=== PATIENT | female | born 1950 | race Caucasian/White ===

== ENCOUNTER → 2016-06-05 | Outpatient (CLI) | payer OTHER ==
[2016-06-05 13:22] LABS: BASO % 0.4 %; BASO ABS # 0.04 K/uL (0-0.2); COMPLETE YES; EOS % 0.5 %; HEMATOCRIT 43.9 % (37-47); IG% 0.4 %; LYMPH % 20.2 %; LYMPH ABS # 1.87 K/uL (1.2-3.4); MEAN CELL VOLUME 94.4 fL (80-100); MEAN CORPUSCULAR HEMOGLOBIN 32.5 pg (25-34); MEAN CORPUSCULAR HGB CONC 34.4 g/dl (32-36); MEAN PLATELET VOLUME 9.3 fL (7.4-10.4); MONO % 8.9 %; NEUT % 69.6 %; PLATELET COUNT 293 K/uL (130-400); RED BLOOD COUNT 4.65 M/uL (4.2-5.4); WHITE BLOOD COUNT 9.24 K/uL (4.8-10.8)
[2016-06-05 13:33] LABS: ALT/SGPT 42 U/L (12-78); BLOOD UREA NITROGEN 12 mg/dl (7-18); BUN/CREATININE RATIO 14.8 (10-20); CARBON DIOXIDE 26 mmol/L (21-32); CHLORIDE 101 mmol/L (98-107); CHOLESTEROL 201 mg/dl (0-200); CREATININE 0.79 mg/dl (0.60-1.20); GLUCOSE 108 mg/dl (70-99); POTASSIUM 3.9 mmol/L (3.5-5.1); SODIUM 137 mmol/L (136-145); TRIGLYCERIDES 103 mg/dl (0-150); VERY LOW DENSITY LIPOPROT CALC 21 mg/dl
[2016-06-05 13:41] LABS: ESTIMATED AVERAGE GLUCOSE 123 mg/dl; HA1C FLAG Normal (Normal)
[2016-06-05 13:43] LABS: ALKALINE PHOSPHATASE 87 U/L (45-117); AST/SGOT 35 U/L (15-37); CHOLESTEROL/HDL RATIO 2.5; HDL CHOLESTEROL 82 mg/dl; LDL CHOLESTEROL CALCULATED 98 mg/dl; THYROID STIMULATING HORMONE 0.815 uIu/ml (0.300-4.500)
== END | disposition home or self-care (01) ==
LOC: C.LABMFLN 08:39
PROVIDERS: ATTEND Family Medicine
DX: I10 Essential (primary) hypertension (principal); E78.5 Hyperlipidemia, unspecified; Z11.59 Encounter for screening for other viral diseases; R73.01 Impaired fasting glucose

== ENCOUNTER → 2016-09-03 | Outpatient (CLI) | payer OTHER | END | disposition home or self-care (01) | LOC: C.PAPS 14:17 | PROVIDERS: ATTEND Family Medicine | DX: Z12.4 Encounter for screening for malignant neoplasm of cervix (principal) ==

== ENCOUNTER → 2016-12-04 | Outpatient (CLI) | payer OTHER ==
[2016-12-04 13:33] LABS: BASO % 0.4 %; BASO ABS # 0.03 K/uL (0-0.2); COMPLETE YES; EOS % 0.2 %; HEMATOCRIT 43.9 % (37-47); IG% 0.4 %; LYMPH % 20.8 %; LYMPH ABS # 1.75 K/uL (1.2-3.4); MEAN CORPUSCULAR HEMOGLOBIN 31.4 pg (25-34); MEAN CORPUSCULAR HGB CONC 34.2 g/dl (32-36); MONO % 10.7 %; NEUT % 67.5 %; PLATELET COUNT 309 K/uL (130-400); RED BLOOD COUNT 4.77 M/uL (4.2-5.4)
[2016-12-04 14:21] LABS: BLOOD UREA NITROGEN 8 mg/dl (7-18); BUN/CREATININE RATIO 11.2 (10-20); CALCIUM 9.5 mg/dl (8.5-10.1); CARBON DIOXIDE 23 mmol/L (21-32); CHLORIDE 105 mmol/L (98-107); CREATININE 0.74 mg/dl (0.60-1.20); GLUCOSE 115 mg/dl (70-99); MAGNESIUM 2.4 mg/dl (1.8-2.4); POTASSIUM 4.1 mmol/L (3.5-5.1); SODIUM 135 mmol/L (136-145)
[2016-12-04 14:31] LABS: PHOSPHORUS 2.7 mg/dl (2.5-4.9); THYROID STIMULATING HORMONE 0.824 uIu/ml (0.300-4.500)
== END | disposition home or self-care (01) ==
LOC: C.LABMFLN 10:29
PROVIDERS: ATTEND Family Medicine
DX: I48.91 Unspecified atrial fibrillation (principal)

== ENCOUNTER 2023-09-14 15:51 | Inpatient (IN) ==
--- NOTE | 2023-09-14 16:07 | ED Triage Note ---
Date of Service September 14, 2023 Provider in Triage Author: Amor Abernathy A History of Present Illness This patient was briefly evaluated while in triage. An abbreviated physical exam was performed. This patient is a 73-year-old Female who presents to the ED for evaluation of low blood pressure. Had neuro appt today and BP was "60/54" in the office. Hx lung CA with mets. Finished chemo/rad. On immunotherapy. Increased weakness. Sore throat. Back pain. Physical Exam Limited Triage Exam: VITALS: Vitals are noted on the nurse's note and reviewed by myself. Vital signs stable. GENERAL: Elderly white female in NAD HEART: Regular rate and rhythm without murmurs gallops or rubs. LUNGS: Clear to auscultation bilaterally without wheezes, rales or rhonchi. . NEURO: Patient was alert and oriented to person place and time. CN II through XII grossly intact. Initial orders for labs and / or imaging were placed and patient was placed in the waiting area until a bed is available. Please see further documentation for the full ED course. MDM / Impression Impression Impression: Pneumonia, Atrial fibrillation with rapid ventricular response, Hypotension, Metastatic disease, Hypokalemia Impression: Pneumonia Qualifiers: Pneumonia type: aspiration pneumonia Aspiration pneumonia type: unspecified Laterality: bilateral Lung location: lower lobe of lung Qualified Code(s): J69.0 - Pneumonitis due to inhalation of food and vomit Hypotension Qualifiers: Hypotension type: unspecified hypotension type Qualified Code(s): I95.9 - Hypotension, unspecified Metastatic disease Qualifiers: Area of secondary neoplastic involvement: unspecified site Qualified Code(s): C79.9 - Secondary malignant neoplasm of unspecified site
[2023-09-14 16:41] LABS: Hematocrit (blood only) 37.2 % (37.0-47.0); Hemoglobin 12.3 g/dl (12.0-16.0); Mean Corpuscular Hemoglobin 30.9 pg (25.0-34.0); Mean Corpuscular Hgb Conc 33.1 g/dL (32.0-36.0); Mean Corpuscular Volume 93.5 fL (80.0-100.0); Mean Platelet Volume 10.6 fL (9.4-12.4); Nucleated RBC # (auto) 0.03 K/uL (0.00-0.12); Nucleated RBC % (auto) 0.4 %; Platelet Count 197 K/uL (130-400); RDW Coefficient of Variation 17.4 % (11.5-14.5); RDW Standard Deviation 57.2 fL (36.4-46.3); Red Blood Count 3.98 M/uL (4.20-5.40); White Blood Count 7.88 K/ul (4.8-10.8)
[2023-09-14] MEDS: SODIUM CHLORIDE 0.9% 500 ML IV ONE ×3 (16:41→19:02)
--- NOTE | 2023-09-14 16:42 | XRay Report ---
XR chest 1V portable CLINICAL HISTORY: hypotension, lung CA history COMPARISON STUDY: Chest radiograph May 19, 2023. PET/CT June 11, 2023. Treatment planning CT July 13, 2023. FINDINGS: Left upper lobe fiducial marker is in place. Left upper lobe airspace opacity on CT of Febr ua 2023 has improved. Mild right lower lung opacities. No evidence for pulmonary edema. There i s no pneumothorax or pleural effusion. Cardiomediastinal silhouette is stable. IMPRESSION: 1. Patchy right lower lung opacities which may be infectious. 2. Interval improvement in left upper lobe airspace opacity. ACT 112: Negative or not required by law. Electronically signed by: Ben Stringer M.D. 09/14/2023 4:41 PM
--- NOTE | 2023-09-14 16:52 | Electrocardiogram Report ---
Test Reason : Blood Pressure : / mmHG Vent. Rate : 127 BPM Atrial Rate : 000 BPM P-R Int : 000 ms QRS Dur : 094 ms QT Int : 294 ms P-R-T Axes : 000 094 233 degrees QTc Int : 427 ms Atrial fibrillation with rapid ventricular response Rightward axis Marked ST abnormality, possible inferior subendocardial injury Marked ST abnormality, possible anterolateral subendocardial injury Abnormal ECG No previous ECGs available Confirmed by Adilson Madrid ([id number]) on 09/14/2023 4:52:25 PM Referred By: Confirmed By:Hammad Madrid
[2023-09-14 16:57] LABS: Alanine Aminotransferase 16 U/L (7-52); Albumin Globulin Ratio 1.1 (0.9-2); Albumin Level 3.6 gm/dl (3.4-5.0); Alkaline Phosphatase 101 U/L (34-104); Anion Gap 13 (3-11); Aspartate Aminotransferase 19 U/L (13-39); BUN Creatinine Ratio 42.9 (10-20); Bilirubin,Total 0.5 mg/dl (0.2-1.0); Blood Urea Nitrogen 76 mg/dl (6-23); Calcium 9.3 mg/dl (8.6-10.3); Carbon Dioxide 28 mmol/L (21-32); Chloride 100 mmol/L (98-107); Est GFR (Non-African American) 27.6 ml/min; Globulin 3.4 gm/dl (2.5-4.0); Glucose 158 mg/dl (70-99(Fasting)); Magnesium 1.9 mg/dl (1.7-2.4); Potassium 2.9 mmol/L (3.5-5.1); Sodium 141 mmol/L (136-145)
--- NOTE | 2023-09-14 17:03 | Emergency Department Note ---
Impression & Plan Pneumonia, Atrial fibrillation with rapid ventricular response, Hypotension, Metastatic disease, Hypokalemia ED Provider Note NAME: JAM AHN AGE: 73 SEX: F : 1950 ARRIVES VIA: Walk-In INFORMANT: Patient ED PROVIDER(S): Vignesh Hastings MD CHIEF COMPLAINT: Weakness, hypotension, afib. PLAN: Disposition: Admit MEDICAL DECISION MAKING: The patient is a pleasant 73-year-old woman with a complicated past medical history of metastatic lung cancer with brain metastases, paroxysmal atrial fibrillation on Eliquis, hypertension, hyperlipidemia who presents to the emergency department via walk-in accompanied by family with concern for generalized weakness and fatigue with low blood pressure after being seen for scheduled visit with neurology to follow-up outpatient MRI which demonstrates brain metastases. The patient has had poor oral intake due to feeling unwell after completing radiation and chemotherapy recently. On my evaluation the patient is ill-appearing no distress, afebrile with blood pressure hypotensive in the 70s/50s with heart rate in the 130s in atrial fibrillation. Patient was fluid responsive with blood pressure improving to 100s and additionally stable following 5 mg of IV Lopressor for rate control and improved ventricular filling. Lungs with diminished breath sounds at the bases with mild rhonchi and otherwise clear. EKG demonstrates atrial fibrillation with RVR with rate of 127. Marked ST abnormalities noted likely related to the patient's hypokalemia of 2.9. No overt ST elevations. WBC, H/H and platelets within normal limits. Creatinine is acutely impaired with creatinine 1.7 consistent with acute renal failure. Potassium 2.9 with IV repletion initiated. Magnesium was low normal and IV repletion was provided. Initial high-sensitivity troponin was 50, nonspecific with delta 2-hour Hites troponin 38.8 downtrending and so likely related to stress related to the patient's RVR and hypotension. LFTs unremarkable. Lipase not elevated. TSH within normal limits. Respiratory viral panel/[employer] was negative. Chest x-ray demonstrates patchy right lower lung opacities suspicious for infection which are better characterized on CT imaging. CTA of the chest was negative for PE. And describes multifocal patchy airspace consolidation typical for pneumonia/aspiration. Incidental note is made of acute inferior endplate compression fracture of L1 with no retropulsion and minimal loss of height. Left upper lobe pulmonary lesion is described and has improved. Progressive metastatic disease in the abdomen pelvis is noted including left lobe hepatic metastases, adrenal metastases and metastatic bony disease within the lumbosacral spine are new from June of this year. Blood cultures were obtained and patient was treated empirically with IV cefepime and metronidazole. MRSA swab was ordered and is pending. Findings reviewed with the patient and family at the bedside and they do agree with plan for admission for further management. Case was discussed with Dr. Hughes [facility] [place] hospitalist, who will evaluate the patient for admission. Triage Nursing notes reviewed and agree them. Prior/external medical records reviewed Vital Signs: reviewed Differential diagnosis: Infection, dehydration, metabolic abnormality, hypo/hyperglycemia, electrolyte disturbance, anemia, hypoxia, cardiac sources, intracerebral event, toxicologic, neurologic, as well as other pathologies. ER treatment provided: See below. Diagnostics interpreted by me: ECG: Atrial fibrillation with RVR, 127bpm, Marked ST abnormalities, no overt ST elevation. Cardiac Monitoring: An order for continuous cardiac monitoring was placed and demonstrated Atrial fibrillation with RVR, 127bpm. Laboratory studies: See below Imaging studies: See below Consultation(s): Case was discussed with Dr. Hughes, [facility] [place] hospitalist, who will evaluate the patient for admission. HPI: The patient is a pleasant 73-year-old woman with a complicated past medical history of metastatic lung cancer with brain metastases, paroxysmal atrial fibrillation on Eliquis, hypertension, hyperlipidemia who presents to the emergency department via walk-in accompanied by family with concern for generalized weakness and fatigue with low blood pressure after being seen for scheduled visit with neurology to follow-up outpatient MRI which demonstrates brain metastases. The patient has had poor oral intake due to feeling unwell after completing radiation and chemotherapy recently. ROS: See above HPI for pertinent positives & negatives. A total of 10 systems reviewed and were otherwise negative. VITALS:See Below PHYSICAL EXAMINATION: GENERAL: Awake, alert, ill-appearing, in no distress HENT: Normocephalic, atraumatic. Oropharynx with dry mucous membranes and otherwise unremarkable. EYES: Normal conjunctiva. Sclera non-icteric. NECK: Supple. No nuchal rigidity. FROM. No JVD. RESPIRATORY: Lungs with diminished breath sounds at the bases with mild rhonchi and otherwise clear. CARDIAC: Tachycardic rate, irregular rhythm. Extremities warm and well perfused. Pulses equal. ABDOMEN: Soft, non-distended. No tenderness to palpation. No rebound or guarding. No masses. MUSCULOSKELETAL: Chest examination reveals no tenderness. The back is symmetrical on inspection without obvious abnormality. There is no CVA tenderness to palpation. No joint edema. LOWER EXTREMITIES: Calves are equal size bilaterally and non-tender. No edema. No discoloration. NEURO: Normal sensorium. No sensory or motor deficits noted. SKIN: No rash or jaundice noted. ED COURSE: Critical Care: I have personally spent greater than 45 minutes of critical care time in the direct management of this patient. This includes bedside care, interpretation of diagnostic studies, and testing, discussion with consultants, patient, and family members, and other required patient management activities. This 45 minutes is in excess of all separately billable procedures. Vignesh Hastings MD Past Med/Surg History Medical History Hx of traumatic subdural hematoma ~68 yrs old History of colon polyps Pulmonary nodule Dyspnea on exertion Diabetes Tobacco use Paroxysmal atrial fibrillation follows w/ Dr Segura every 6 mos; controlled w/ meds Hypertension Hyperlipidemia Generalized anxiety disorder Depression COPD (chronic obstructive pulmonary disease) with emphysema Allergic rhinitis Surgical History S/P tonsillectomy and adenoidectomy S/P decompression of ulnar nerve H/O dilation and curettage S/P colonoscopy Family History Sister Breast cancer, Onset Age: 50 Daughter Colorectal cancer Mother Coronary heart disease Diabetes Father Coronary heart disease Lung cancer Myocardial infarction Grandfather (Maternal) Lung cancer Sister Hypothyroid Diabetes Brother Myocardial infarction, Onset Age: 57 Sister Suicide, Onset Age: 40 Manic depression Daughter Colon cancer, Onset Age: 41 Denies family history of Ovarian cancer Prostate cancer Social History Smoking Status: Never smoker Tobacco Type: Cigarettes Age Started Using Tobacco: 13; packs per day: 0.75; Cigarettes Per Day: 30 per day- advised; Second Hand Exposure: Yes (Father smoked); Do You Dip or Chew Tobacco: No; Hx Alcohol Use: No Hx Substance Use: No Preferred Language: Rw[place]an Communication Ability: Effective Visual Impairment: No Limitations Hearing Ability: Normal 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: No Beliefs That Will Affect Care: None marital status: / Current Living Situation: Family Current Living Situation Comment: Lives with sister and sister in law 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; How many Children do You have: 1 How many Children do You have Comment: 1 living and 1 Feels Safe at Home: Yes Childhood Exposure to Second-Hand Smoke: Yes (Father smoked) Diet: regular caffeine: Yes during the past year weight has: increased > 10 lbs Dental Care, Regularly: No 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: 3-4 Times per Week 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 Comment: 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[employer], 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 Seatbelt Use: always Sunscreen Use: Yes Gender Identity: Female Assistive Devices: Denture - Upper, Glasses, Nebulizer and Stair Lift Allergies Allergies Allergy/AdvReac Type Severity Reaction Status Date / Time atorvastatin [From Lipitor] AdvReac Intermediate Legs go to Verified 09/14/23 14:44 sleep Home Meds Home Medications Medication Instructions Recorded Confirmed acetaminophen 325 mg capsule 650 mg PO Q6H PRN Pain 04/09/21 09/14/23 (Tylenol) apixaban 5 mg tablet (Eliquis) 5 mg PO BID 05/19/23 09/14/23 prochlorperazine maleate 10 mg 10 mg PO Q6H PRN n/v 08/04/23 09/14/23 tablet (Compazine) dexamethasone 4 mg tablet 20 mg PO DAILY 08/07/23 09/14/23 Previous Rx's Medication Instructions Recorded venlafaxine 150 mg 150 mg PO DAILY #90 caps 11/21/22 capsule,extended release 24 hr losartan 100 mg tablet 100 mg PO DAILY #90 tabs 12/30/22 rosuvastatin 20 mg tablet 20 mg PO DAILY #90 tabs 01/09/23 venlafaxine 75 mg capsule,extended 75 mg PO DAILY #90 caps 01/09/23 release 24 hr metformin 500 mg tablet,extended 500 mg PO BID #180 tabs 01/12/23 release 24hr (osmotic) nebulizers #1 ea 07/13/23 metoprolol succinate 200 mg 200 mg PO DAILY #90 tabs 07/28/23 tablet,extended release 24 hr albuterol sulfate 90 mcg/actuation 2 puff inhalation QID PRN 08/06/23 aerosol inhaler (ProAir HFA) shortness of breath or wheezing #18 grams hydrochlorothiazide 12.5 mg tablet 12.5 mg PO DAILY #90 tabs 08/06/23 fluticasone fur. 200 mcg-umeclid 1 inh inhalation DAILY #60 ea 08/07/23 62.5 mcg-vilant 25 mcg inhalat.powder (Trelegy Ellipta) clonazepam 1 mg tablet 1 mg PO BID PRN anxiety #90 tabs 08/10/23 ipratropium 0.5 mg-albuterol 3 mg 3 ml inhalation QID #180 mL 08/10/23 (2.5 mg base)/3 mL nebulization soln Magic Mouthwash 300 mL mouthwash 10 ml mucous membrane ACHS 08/17/23 Dysphagia #300 mL sucralfate 1 gram tablet (Carafate) 1 g PO ACHS #90 tabs 08/24/23 varenicline 1 mg tablet (Chantix 1 mg PO BID #60 tabs 08/24/23 Continuing Month Box) tramadol 50 mg tablet 50 mg PO Q8H PRN pain #60 tabs 09/01/23 Results & Data (ED) Vital Signs Vital Signs - 24 hr 09/14/23 16:05 09/14/23 16:22 09/14/23 16:23 Temperature 36.9 C Temperature Source Temporal Artery Scan Pulse Rate 69 133 H Pulse Rate [Apical] Pulse Rate from SpO2 Sensor 87 Pulse Rhythm [Apical] Pulse Strength [Apical] Respiratory Rate 18 27 H Respiratory Effort / Characteristics Non-Labored Spontaneous Respiratory Depth Normal Respiratory Pattern Blood Pressure 76/55 L Blood Pressure [Left Arm] Blood Pressure Mean 62 Blood Pressure Mean [Left Arm] Blood Pressure Position [Left Arm] Pulse Oximetry 94 92 92 Oxygen Delivery Method Room Air Room Air Oxygen Flow Rate Sepsis Recent Fever Within 48 Hours No Sepsis New/Unexplained Change in Mental Status N/A Sepsis Action Taken by Nursing No Action Required 09/14/23 16:23 09/14/23 16:30 09/14/23 16:31 Temperature 36.9 C Temperature Source Oral Pulse Rate 130 H Pulse Rate [Apical] 130 H Pulse Rate from SpO2 Sensor 115 H Pulse Rhythm [Apical] Regular Pulse Strength [Apical] Normal Respiratory Rate 20 26 H Respiratory Effort / Characteristics Non-Labored Spontaneous Respiratory Depth Normal Respiratory Pattern Regular Blood Pressure 108/57 L Blood Pressure [Left Arm] 96/54 L Blood Pressure Mean 60 Blood Pressure Mean [Left Arm] 68 Blood Pressure Position [Left Arm] Semi-fowlers Pulse Oximetry 92 93 Oxygen Delivery Method Room Air Oxygen Flow Rate Sepsis Recent Fever Within 48 Hours Sepsis New/Unexplained Change in Mental Status Sepsis Action Taken by Nursing 09/14/23 16:31 09/14/23 16:40 09/14/23 16:50 Temperature Temperature Source Pulse Rate 134 H 124 H 105 H Pulse Rate [Apical] Pulse Rate from SpO2 Sensor 118 H 122 H 111 H Pulse Rhythm [Apical] Pulse Strength [Apical] Respiratory Rate 26 H 23 22 Respiratory Effort / Characteristics Respiratory Depth Respiratory Pattern Blood Pressure Blood Pressure [Left Arm] Blood Pressure Mean Blood Pressure Mean [Left Arm] Blood Pressure Position [Left Arm] Pulse Oximetry 97 97 90 Oxygen Delivery Method Oxygen Flow Rate Sepsis Recent Fever Within 48 Hours Sepsis New/Unexplained Change in Mental Status Sepsis Action Taken by Nursing 09/14/23 16:54 09/14/23 17:00 09/14/23 17:00 Temperature Temperature Source Pulse Rate 131 H 112 H Pulse Rate [Apical] Pulse Rate from SpO2 Sensor 115 H Pulse Rhythm [Apical] Pulse Strength [Apical] Respiratory Rate 24 Respiratory Effort / Characteristics Respiratory Depth Respiratory Pattern Blood Pressure 97/62 L Blood Pressure [Left Arm] Blood Pressure Mean 71 Blood Pressure Mean [Left Arm] Blood Pressure Position [Left Arm] Pulse Oximetry 93 Oxygen Delivery Method Oxygen Flow Rate Sepsis Recent Fever Within 48 Hours Sepsis New/Unexplained Change in Mental Status Sepsis Action Taken by Nursing 09/14/23 17:10 09/14/23 17:20 09/14/23 17:22 Temperature Temperature Source Pulse Rate 111 H 111 H 111 H Pulse Rate [Apical] Pulse Rate from SpO2 Sensor 114 H 108 H Pulse Rhythm [Apical] Pulse Strength [Apical] Respiratory Rate 25 H 24 Respiratory Effort / Characteristics Respiratory Depth Respiratory Pattern Blood Pressure 97/62 L Blood Pressure [Left Arm] Blood Pressure Mean Blood Pressure Mean [Left Arm] Blood Pressure Position [Left Arm] Pulse Oximetry 91 87 L Oxygen Delivery Method Oxygen Flow Rate Sepsis Recent Fever Within 48 Hours Sepsis New/Unexplained Change in Mental Status Sepsis Action Taken by Nursing 09/14/23 17:30 09/14/23 17:30 09/14/23 17:37 Temperature Temperature Source Pulse Rate 103 H 102 H Pulse Rate [Apical] Pulse Rate from SpO2 Sensor 110 H Pulse Rhythm [Apical] Pulse Strength [Apical] Respiratory Rate 21 Respiratory Effort / Characteristics Respiratory Depth Respiratory Pattern Blood Pressure 101/57 L 101/57 L Blood Pressure [Left Arm] Blood Pressure Mean 73 Blood Pressure Mean [Left Arm] Blood Pressure Position [Left Arm] Pulse Oximetry 87 L Oxygen Delivery Method Oxygen Flow Rate Sepsis Recent Fever Within 48 Hours Sepsis New/Unexplained Change in Mental Status Sepsis Action Taken by Nursing 09/14/23 18:00 09/14/23 18:00 09/14/23 18:10 Temperature 36.9 C Temperature Source Oral Pulse Rate 108 H 97 H Pulse Rate [Apical] 103 H Pulse Rate from SpO2 Sensor 102 H 102 H Pulse Rhythm [Apical] Regular Pulse Strength [Apical] Normal Respiratory Rate 20 25 H 25 H Respiratory Effort / Characteristics Non-Labored Spontaneous Respiratory Depth Normal Respiratory Pattern Regular Blood Pressure Blood Pressure [Left Arm] 101/57 L Blood Pressure Mean Blood Pressure Mean [Left Arm] 71 Blood Pressure Position [Left Arm] Semi-fowlers Pulse Oximetry 92 92 91 Oxygen Delivery Method Room Air Oxygen Flow Rate Sepsis Recent Fever Within 48 Hours Sepsis New/Unexplained Change in Mental Status Sepsis Action Taken by Nursing 09/14/23 18:20 09/14/23 18:30 09/14/23 18:40 Temperature Temperature Source Pulse Rate 107 H 120 H 99 H Pulse Rate [Apical] Pulse Rate from SpO2 Sensor 112 H 114 H 105 H Pulse Rhythm [Apical] Pulse Strength [Apical] Respiratory Rate 25 H 22 21 Respiratory Effort / Characteristics Respiratory Depth Respiratory Pattern Blood Pressure Blood Pressure [Left Arm] Blood Pressure Mean Blood Pressure Mean [Left Arm] Blood Pressure Position [Left Arm] Pulse Oximetry 89 L 89 L 86 L Oxygen Delivery Method Oxygen Flow Rate Sepsis Recent Fever Within 48 Hours Sepsis New/Unexplained Change in Mental Status Sepsis Action Taken by Nursing 09/14/23 18:43 09/14/23 18:43 09/14/23 18:50 Temperature Temperature Source Pulse Rate 103 H 107 H Pulse Rate [Apical] Pulse Rate from SpO2 Sensor 106 H 105 H Pulse Rhythm [Apical] Pulse Strength [Apical] Respiratory Rate 23 25 H Respiratory Effort / Characteristics Respiratory Depth Respiratory Pattern Blood Pressure 94/67 L Blood Pressure [Left Arm] Blood Pressure Mean 79 Blood Pressure Mean [Left Arm] Blood Pressure Position [Left Arm] Pulse Oximetry 92 89 L Oxygen Delivery Method Room Air Oxygen Flow Rate Sepsis Recent Fever Within 48 Hours Sepsis New/Unexplained Change in Mental Status Sepsis Action Taken by Nursing 09/14/23 19:00 09/14/23 19:00 09/14/23 19:10 Temperature Temperature Source Pulse Rate 107 H 107 H 109 H Pulse Rate [Apical] Pulse Rate from SpO2 Sensor 103 H 112 H Pulse Rhythm [Apical] Pulse Strength [Apical] Respiratory Rate 26 H 26 H 26 H Respiratory Effort / Characteristics Respiratory Depth Respiratory Pattern Blood Pressure 121/82 Blood Pressure [Left Arm] Blood Pressure Mean 87 Blood Pressure Mean [Left Arm] Blood Pressure Position [Left Arm] Pulse Oximetry 94 94 99 Oxygen Delivery Method Nasal Cannula Oxygen Flow Rate 2 Sepsis Recent Fever Within 48 Hours Sepsis New/Unexplained Change in Mental Status Sepsis Action Taken by Nursing 09/14/23 19:30 09/14/23 19:30 09/14/23 20:00 Temperature Temperature Source Pulse Rate 107 H 105 H Pulse Rate [Apical] Pulse Rate from SpO2 Sensor 110 H Pulse Rhythm [Apical] Pulse Strength [Apical] Respiratory Rate 21 23 Respiratory Effort / Characteristics Respiratory Depth Respiratory Pattern Blood Pressure 110/86 107/86 Blood Pressure [Left Arm] Blood Pressure Mean 94 93 Blood Pressure Mean [Left Arm] Blood Pressure Position [Left Arm] Pulse Oximetry 96 95 Oxygen Delivery Method Nasal Cannula Oxygen Flow Rate 2 Sepsis Recent Fever Within 48 Hours Sepsis New/Unexplained Change in Mental Status Sepsis Action Taken by Nursing 09/14/23 20:00 09/14/23 20:25 Temperature Temperature Source Pulse Rate 105 H 104 H Pulse Rate [Apical] Pulse Rate from SpO2 Sensor 114 H Pulse Rhythm [Apical] Pulse Strength [Apical] Respiratory Rate 23 Respiratory Effort / Characteristics Respiratory Depth Respiratory Pattern Blood Pressure Blood Pressure [Left Arm] Blood Pressure Mean Blood Pressure Mean [Left Arm] Blood Pressure Position [Left Arm] Pulse Oximetry 95 Oxygen Delivery Method Oxygen Flow Rate Sepsis Recent Fever Within 48 Hours Sepsis New/Unexplained Change in Mental Status Sepsis Action Taken by Nursing Laboratory Data Attestation: I reviewed the patient's lab results. 09/14/23 16:20 09/14/23 16:20 Lab Results 09/14/23 09/14/23 09/14/23 Range/Units 16:20 16:30 16:57 WBC 7.88 (4.8-10.8) K/ul RBC 3.98 L (4.20-5.40) M/uL Hgb 12.3 (12.0-16.0) g/dl Hct 37.2 (37.0-47.0) % MCV 93.5 (80.0-100.0) fL MCH 30.9 (25.0-34.0) pg MCHC 33.1 (32.0-36.0) g/dL RDW Std Deviation 57.2 H (36.4-46.3) fL RDW Coeff of Jayda 17.4 H (11.5-14.5) % Plt Count 197 (130-400) K/uL MPV 10.6 (9.4-12.4) fL Immature Gran % (Auto) 2.8 % Neut % (Auto) 75.0 % Lymph % (Auto) 13.7 % [place] % (Auto) 8.0 % Eos % (Auto) 0.0 % Baso % (Auto) 0.5 % Neut # (Auto) 5.91 (1.40-6.50) K/uL Lymph # (Auto) 1.08 L (1.20-3.40) K/uL [place] # (Auto) 0.63 H (0.11-0.59) K/uL Eos # (Auto) 0.00 (0.00-0.50) K/uL Baso # (Auto) 0.04 (0.00-0.20) K/uL Immature Gran # (Auto) 0.22 H (0.01-0.20) K/uL Absolute Nucleated RBC 0.03 (0.00-0.12) K/uL Nucleated RBC % (auto) 0.4 % Sodium 141 (136-145) mmol/L Potassium 2.9 L (3.5-5.1) mmol/L Chloride 100 (98-107) mmol/L Carbon Dioxide 28 (21-32) mmol/L Anion Gap 13 H (3-11) BUN 76 H (6-23) mg/dl Creatinine 1.77 H (0.6-1.2) mg/dl Est Cr Clr Drug Dosing Not Reportable Est GFR ( Amer) 32.0 ml/min Est GFR (Non-Af Amer) 27.6 ml/min BUN/Creatinine Ratio 42.9 H (10-20) Glucose 158 H (70-99(Fasting)) mg/dl Lactate 1.1 (0.4-2.0) mmol/L Calcium 9.3 (8.6-10.3) mg/dl Phosphorus 3.0 (2.5-4.9) mg/dl Magnesium 1.9 (1.7-2.4) mg/dl Total Bilirubin 0.5 (0.2-1.0) mg/dl AST 19 (13-39) U/L ALT 16 (7-52) U/L Alkaline Phosphatase 101 (34-104) U/L Troponin I High Sens 53.6 H* (0-14) pg/ml Total Protein 7.0 (6.0-8.3) gm/dl Albumin 3.6 (3.4-5.0) gm/dl Globulin 3.4 (2.5-4.0) gm/dl Albumin/Globulin Ratio 1.1 (0.9-2) Lipase 8 L (11-82) U/L TSH 1.042 (0.300-4.500) uIu/ml Nasal Screen MRSA (PCR) (Negative) Adenovirus (PCR) (NotDetected) B. pertussis DNA (PCR) (NotDetected) B.parapertussis DNA PCR (NotDetected) C. pneumoniae DNA (PCR) (NotDetected) Coronavirus OC43 (PCR) (NotDetected) Coronavirus HKU1 (PCR) (NotDetected) Coronavirus 229E (PCR) (NotDetected) SARS-CoV-2 (PCR) (NotDetected) Coronavirus NL63 (PCR) (NotDetected) Human Metapneumovir PCR (NotDetected) Influenza Type A (PCR) (NotDetected) Influenza Type B (PCR) (NotDetected) M. pneumoniae (PCR) (NotDetected) Parainfluenza 1 (PCR) (NotDetected) Parainfluenza 2 (PCR) (NotDetected) Parainfluenza 3 (PCR) (NotDetected) Parainfluenza 4 (PCR) (NotDetected) RSV (PCR) (NotDetected) Entero/Rhino (PCR) (NotDetected) Blood Type A Positive Antibody Screen NEGATIVE 09/14/23 09/14/23 09/14/23 Range/Units 17:05 18:10 19:03 WBC (4.8-10.8) K/ul RBC (4.20-5.40) M/uL Hgb (12.0-16.0) g/dl Hct (37.0-47.0) % MCV (80.0-100.0) fL MCH (25.0-34.0) pg MCHC (32.0-36.0) g/dL RDW Std Deviation (36.4-46.3) fL RDW Coeff of Jayda (11.5-14.5) % Plt Count (130-400) K/uL MPV (9.4-12.4) fL Immature Gran % (Auto) % Neut % (Auto) % Lymph % (Auto) % [place] % (Auto) % Eos % (Auto) % Baso % (Auto) % Neut # (Auto) (1.40-6.50) K/uL Lymph # (Auto) (1.20-3.40) K/uL [place] # (Auto) (0.11-0.59) K/uL Eos # (Auto) (0.00-0.50) K/uL Baso # (Auto) (0.00-0.20) K/uL Immature Gran # (Auto) (0.01-0.20) K/uL Absolute Nucleated RBC (0.00-0.12) K/uL Nucleated RBC % (auto) % Sodium (136-145) mmol/L Potassium (3.5-5.1) mmol/L Chloride (98-107) mmol/L Carbon Dioxide (21-32) mmol/L Anion Gap (3-11) BUN (6-23) mg/dl Creatinine (0.6-1.2) mg/dl Est Cr Clr Drug Dosing Est GFR ( Amer) ml/min Est GFR (Non-Af Amer) ml/min BUN/Creatinine Ratio (10-20) Glucose (70-99(Fasting)) mg/dl Lactate (0.4-2.0) mmol/L Calcium (8.6-10.3) mg/dl Phosphorus (2.5-4.9) mg/dl Magnesium (1.7-2.4) mg/dl Total Bilirubin (0.2-1.0) mg/dl AST (13-39) U/L ALT (7-52) U/L Alkaline Phosphatase (34-104) U/L Troponin I High Sens 38.8 H D (0-14) pg/ml Total Protein (6.0-8.3) gm/dl Albumin (3.4-5.0) gm/dl Globulin (2.5-4.0) gm/dl Albumin/Globulin Ratio (0.9-2) Lipase (11-82) U/L TSH (0.300-4.500) uIu/ml Nasal Screen MRSA (PCR) Negative (Negative) Adenovirus (PCR) Not Detected (NotDetected) B. pertussis DNA (PCR) Not Detected (NotDetected) B.parapertussis DNA PCR Not Detected (NotDetected) C. pneumoniae DNA (PCR) Not Detected (NotDetected) Coronavirus OC43 (PCR) Not Detected (NotDetected) Coronavirus HKU1 (PCR) Not Detected (NotDetected) Coronavirus 229E (PCR) Not Detected (NotDetected) SARS-CoV-2 (PCR) Not Detected (NotDetected) Coronavirus NL63 (PCR) Not Detected (NotDetected) Human Metapneumovir PCR Not Detected (NotDetected) Influenza Type A (PCR) Not Detected (NotDetected) Influenza Type B (PCR) Not Detected (NotDetected) M. pneumoniae (PCR) Not Detected (NotDetected) Parainfluenza 1 (PCR) Not Detected (NotDetected) Parainfluenza 2 (PCR) Not Detected (NotDetected) Parainfluenza 3 (PCR) Not Detected (NotDetected) Parainfluenza 4 (PCR) Not Detected (NotDetected) RSV (PCR) Not Detected (NotDetected) Entero/Rhino (PCR) Not Detected (NotDetected) Blood Type Antibody Screen Administered Medications Discontinued Medications Sodium Chloride (Nss) 500 mls @ 999 mls/hr IV .Q31M ONE Stop: 09/14/23 16:58 Last Infusion: 09/14/23 17:59 Dose: Infused Documented By: Admin: 09/14/23 16:41 Dose: 999 mls/hr Documented By: KAUSHAL Sodium Chloride (Nss) 500 mls @ 999 mls/hr IV .Q31M ONE Stop: 09/14/23 17:26 Last Infusion: 09/14/23 19:02 Dose: Infused Documented By: Admin: 09/14/23 17:24 Dose: 999 mls/hr Documented By: KAUSHAL Potassium Chloride ([employer] / Wtr) 10 meq in 100 mls @ 100 mls/hr IV Q1H PAUL Stop: 09/14/23 20:14 Last Infusion: 09/14/23 21:43 Dose: Infused Documented By: Admin: 09/14/23 20:09 Dose: 100 mls/hr Documented By: Infusion: 09/14/23 19:53 Dose: Infused Documented By: Admin: 09/14/23 18:53 Dose: 100 mls/hr Documented By: Infusion: 09/14/23 18:53 Dose: Infused Documented By: Admin: 09/14/23 17:58 Dose: 100 mls/hr Documented By: KAUSHAL Magnesium Sulfate/Dextrose (Magnesium Sulfate / D5w) 1 gm in 100 mls @ 100 mls/hr IV NOW STA Stop: 09/14/23 18:15 Last Infusion: 09/14/23 19:02 Dose: Infused Documented By: Admin: 09/14/23 17:58 Dose: 100 mls/hr Documented By: KAUSHAL Sodium Chloride (Nss) 500 mls @ 999 mls/hr IV .Q31M ONE Stop: 09/14/23 19:25 Last Infusion: 09/14/23 20:15 Dose: Infused Documented By: Admin: 09/14/23 19:02 Dose: 999 mls/hr Documented By: ARISTEO Cefepime HCl (Maxipime) 2,000 mg in 20 mls @ 5 mls/min IV NOW STA; Protocol Stop: 09/14/23 19:02 Last Admin: 09/14/23 19:16 Dose: 5 mls/min Documented By: ARISTEO Metronidazole (Flagyl) 500 mg in 100 mls @ 100 mls/hr IV NOW STA; Protocol Stop: 09/14/23 19:58 Last Infusion: 09/14/23 20:36 Dose: Infused Documented By: Admin: 09/14/23 19:22 Dose: 100 mls/hr Documented By: ARISTEO Ioversol (Optiray 320 125ml) 118 ml IV ONCE ONE Stop: 09/14/23 17:53 Last Admin: 09/14/23 17:52 Dose: 118 ml Documented By: BRIAN Metoprolol Tartrate (Metoprolol Tartrate 1 Mg/Ml Vial) 5 mg IV NOW STA Stop: 09/14/23 16:57 Last Admin: 09/14/23 17:22 Dose: 5 mg Documented By: CAW Imaging Data Radiologist's Impression: Chest X-Ray 09/14/23 16:07 XR chest 1V portable CLINICAL HISTORY: hypotension, lung CA history COMPARISON STUDY: Chest radiograph May 19, 2023. PET/CT June 11, 2023. Treatment planning CT July 13, 2023. FINDINGS: Left upper lobe fiducial marker is in place. Left upper lobe airspace opacity on CT of July 13, 2023 has improved. Mild right lower lung opacities. No evidence for pulmonary edema. There is no pneumothorax or pleural effusion. Cardiomediastinal silhouette is stable. IMPRESSION: 1. Patchy right lower lung opacities which may be infectious. 2. Interval improvement in left upper lobe airspace opacity. ACT 112: Negative or not required by law. Electronically signed by: Ben Stringer M.D. 09/14/2023 4:41 PM Abdomen/Pelvis CT 09/14/23 17:17 CT ANGIOGRAM OF THE CHEST; CT SCAN OF THE ABDOMEN AND PELVIS WITH IV CONTRAST CLINICAL HISTORY: Metastatic disease. Acute renal insufficiency. Tachycardia. Atypical chest pain. COMPARISON STUDY: Chest CT dated 05/07/2023. PET/CT dated 06/11/2023. Chest x-ray dated 09/14/2023. TECHNIQUE: Following the IV administration of 118 of Optiray 320, CT angiogram of the chest is performed from the upper abdomen to the thoracic inlet utilizing the pulmonary embolus protocol. Images are reviewed in the axial, sagittal, coronal planes. 3-D MIPS images are created and assessed. Subsequently, CT scan of the abdomen and pelvis was performed from the lung bases to the proximal femora. Images are reviewed in the axial, sagittal, and coronal planes. IV contrast was administered without complication. A dose lowering technique was utilized adhering to the principles of ALARA. There is streak artifact from the arms which could not be elevated above the chest or abdomen. CT DOSE: 2511.98 mGy.cm FINDINGS: CHEST: Thyroid: Imaged portions of the thyroid gland are normal in size and attenuation. Thoracic aorta: There is atherosclerotic calcification of the thoracic aorta, which is normal in caliber and demonstrates bovine variant arch anatomy. No dissection is seen. Pulmonary vasculature: The main pulmonary arteries are dilated suggesting pulmonary artery hypertension. There are no filling defects identified in the main, lobar, or segmental pulmonary arteries to indicate pulmonary embolus. Heart: The heart is enlarged and without pericardial effusion. The coronary arteries and mitral annulus are densely calcified. Lungs and pleural spaces: There is moderate to advanced emphysema. Metallic fiducials are seen in the left upper lobe. A residual left upper lobe nodule image #180 measures 1.1 cm. Multifocal patchy airspace consolidation is seen throughout both lungs, greatest in the right middle and right lower lobes. No pleural effusion is identified. The trachea and central airways are clear. Secretions/debris fill the left lower lobe airways. There are also foci of mucus plugging on the right. A diffuse peribronchial thickening is observed. Mediastinum: Mediastinal lymphadenopathy as decreased from previous. A residual subcarinal node Measures 3.7 x 2.3 cm. A prevascular node measures 8 mm short axis. Earnestine: Left hilar adenopathy has decreased from previous. Residual left hilar nodes measure up to at least 7 mm in short axis. Axillae: There is no axillary lymphadenopathy. Bony thorax: The skeletal structures are osteopenic. No lytic or blastic lesions are identified in the thorax. Degenerative change is noted in the shoulders and thoracic spine. There are chronic/healed bilateral rib fractures. There is a mild chronic compression deformity of T12. ABDOMEN AND PELVIS: Liver: The contrast-enhanced liver is normal in size, contour, and attenuation. There is no intrahepatic biliary ductal dilatation. The hepatic veins and portal veins are patent. A 2.8 cm left lobe hepatic metastasis seen on image #87 was not seen previously. No additional hepatic metastases are identified. Gallbladder: Unremarkable. Spleen: Normal in size and attenuation. Pancreas: Moderately atrophic and grossly unremarkable. Adrenal glands: There is increasing nodular thickening of the left adrenal gland consistent with metastatic disease. There are also likely small right adrenal metastases. Kidneys: The contrast enhanced kidneys are normal in size and without hydronephrosis. The kidneys enhance symmetrically. Renal cysts measure up to 2.7 cm. Additional subcentimeter cortical hypodensities also likely represent cysts but are too small for definitive characterization. A 5 mm nonobstructing calculus is noted on the right. Foci of cortical scarring are seen in both kidneys. Abdominal vasculature: There is advanced atherosclerotic calcification and mild ectasia of the abdominal aorta. Bowel: There is no bowel obstruction. The appendix is well-visualized and normal. Peritoneum: There is no intraperitoneal free air or abdominal ascites. Lymphadenopathy: None. Pelvic viscera: The bladder, uterus, and adnexa are normal as visualized. Skeletal structures: The skeletal structures are osteopenic. There is an acute inferior plate compression fracture of L1 with mild loss of height. No retropulsed fragments are seen. There is moderate lumbosacral spondylosis. There is evidence of multifocal osteoblastic metastatic disease. Lesions are seen within the bodies of L2, L3, and L4. A left sacral lesion is seen on image #231.. IMPRESSION: 1. There is no evidence of pulmonary embolus in the main, lobar, or segmental pulmonary arteries. 2. Cardiomegaly and emphysema. 3. Multifocal patchy airspace consolidation is typical for pneumonia/aspiration pneumonitis. Correlate clinically. Radiographic follow-up to resolution is recommended. 4. There is an acute inferior endplate compression fracture of L1. There is minimal loss of height and no significant retropulsion of fragments. 5. A left upper lobe pulmonary lesion, mediastinal lymphadenopathy, and left hilar lymphadenopathy have improved as compared to the 06/11/2023 PET examination. Correlate with the oncological history 6. There is evidence of progressive metastatic disease in the abdomen and pelvis. 7. A left lobe hepatic metastasis, adrenal metastases, and metastatic bony disease involving the lumbosacral spine are new findings as compared to 06/11/2023. 8. Additional findings as above. ACT 112: Negative or not required by law. Electronically signed by: Anthony Gonzales M.D. 09/14/2023 7:03 PM Chest CTA 09/14/23 17:17 CT ANGIOGRAM OF THE CHEST; CT SCAN OF THE ABDOMEN AND PELVIS WITH IV CONTRAST CLINICAL HISTORY: Metastatic disease. Acute renal insufficiency. Tachycardia. Atypical chest pain. COMPARISON STUDY: Chest CT dated 05/07/2023. PET/CT dated 06/11/2023. Chest x-ray dated 09/14/2023. TECHNIQUE: Following the IV administration of 118 of Optiray 320, CT angiogram of the chest is performed from the upper abdomen to the thoracic inlet utilizing the pulmonary embolus protocol. Images are reviewed in the axial, sagittal, coronal planes. 3-D MIPS images are created and assessed. Subsequently, CT scan of the abdomen and pelvis was performed from the lung bases to the proximal femora. Images are reviewed in the axial, sagittal, and coronal planes. IV contrast was administered without complication. A dose lowering technique was utilized adhering to the principles of ALARA. There is streak artifact from the arms which could not be elevated above the chest or abdomen. CT DOSE: 2511.98 mGy.cm FINDINGS: CHEST: Thyroid: Imaged portions of the thyroid gland are normal in size and attenuation. Thoracic aorta: There is atherosclerotic calcification of the thoracic aorta, which is normal in caliber and demonstrates bovine variant arch anatomy. No dissection is seen. Pulmonary vasculature: The main pulmonary arteries are dilated suggesting pulmonary artery hypertension. There are no filling defects identified in the main, lobar, or segmental pulmonary arteries to indicate pulmonary embolus. Heart: The heart is enlarged and without pericardial effusion. The coronary arteries and mitral annulus are densely calcified. Lungs and pleural spaces: There is moderate to advanced emphysema. Metallic fiducials are seen in the left upper lobe. A residual left upper lobe nodule image #180 measures 1.1 cm. Multifocal patchy airspace consolidation is seen throughout both lungs, greatest in the right middle and right lower lobes. No pleural effusion is identified. The trachea and central airways are clear. Secretions/debris fill the left lower lobe airways. There are also foci of mucus plugging on the right. A diffuse peribronchial thickening is observed. Mediastinum: Mediastinal lymphadenopathy as decreased from previous. A residual subcarinal node Measures 3.7 x 2.3 cm. A prevascular node measures 8 mm short axis. Earnestine: Left hilar adenopathy has decreased from previous. Residual left hilar nodes measure up to at least 7 mm in short axis. Axillae: There is no axillary lymphadenopathy. Bony thorax: The skeletal structures are osteopenic. No lytic or blastic lesions are identified in the thorax. Degenerative change is noted in the shoulders and thoracic spine. There are chronic/healed bilateral rib fractures. There is a mild chronic compression deformity of T12. ABDOMEN AND PELVIS: Liver: The contrast-enhanced liver is normal in size, contour, and attenuation. There is no intrahepatic biliary ductal dilatation. The hepatic veins and portal veins are patent. A 2.8 cm left lobe hepatic metastasis seen on image #87 was not seen previously. No additional hepatic metastases are identified. Gallbladder: Unremarkable. Spleen: Normal in size and attenuation. Pancreas: Moderately atrophic and grossly unremarkable. Adrenal glands: There is increasing nodular thickening of the left adrenal gland consistent with metastatic disease. There are also likely small right adrenal metastases. Kidneys: The contrast enhanced kidneys are normal in size and without hydronephrosis. The kidneys enhance symmetrically. Renal cysts measure up to 2.7 cm. Additional subcentimeter cortical hypodensities also likely represent cysts but are too small for definitive characterization. A 5 mm nonobstructing calculus is noted on the right. Foci of cortical scarring are seen in both kidneys. Abdominal vasculature: There is advanced atherosclerotic calcification and mild ectasia of the abdominal aorta. Bowel: There is no bowel obstruction. The appendix is well-visualized and normal. Peritoneum: There is no intraperitoneal free air or abdominal ascites. Lymphadenopathy: None. Pelvic viscera: The bladder, uterus, and adnexa are normal as visualized. Skeletal structures: The skeletal structures are osteopenic. There is an acute inferior plate compression fracture of L1 with mild loss of height. No retropulsed fragments are seen. There is moderate lumbosacral spondylosis. There is evidence of multifocal osteoblastic metastatic disease. Lesions are seen within the bodies of L2, L3, and L4. A left sacral lesion is seen on image #231.. IMPRESSION: 1. There is no evidence of pulmonary embolus in the main, lobar, or segmental pulmonary arteries. 2. Cardiomegaly and emphysema. 3. Multifocal patchy airspace consolidation is typical for pneumonia/aspiration pneumonitis. Correlate clinically. Radiographic follow-up to resolution is recommended. 4. There is an acute inferior endplate compression fracture of L1. There is minimal loss of height and no significant retropulsion of fragments. 5. A left upper lobe pulmonary lesion, mediastinal lymphadenopathy, and left hilar lymphadenopathy have improved as compared to the 06/11/2023 PET examination. Correlate with the oncological history 6. There is evidence of progressive metastatic disease in the abdomen and pelvis. 7. A left lobe hepatic metastasis, adrenal metastases, and metastatic bony disease involving the lumbosacral spine are new findings as compared to 06/11/2023. 8. Additional findings as above. ACT 112: Negative or not required by law. Electronically signed by: Anthony Gonzales M.D. 09/14/2023 7:[address] 09/14/23 17:17 CT SCAN OF THE BRAIN WITHOUT IV CONTRAST CLINICAL HISTORY: Near syncope. COMPARISON STUDY: MRI of the brain dated 09/10/2023. TECHNIQUE: Unenhanced axial CT scan of the brain is performed from the vertex to the skull base. A dose lowering technique was utilized adhering to the principles of ALARA. FINDINGS: Brain parenchyma: There is age-related involutional change noting moderate to advanced subcortical and periventricular microangiopathic disease. There is no hemorrhage, mass effect, or evidence of acute territorial ischemia by CT criteria. A focus of right cerebellar encephalomalacia is consistent with a remote insult. Pittman-white matter differentiation is preserved. No extra-axial fluid collection is seen. Ventricles, sulci, cisterns: Prominent secondary to involutional change. Intracranial vasculature: There is atherosclerotic calcification of the cavernous carotid and vertebral arteries. Calvarium: Unremarkable. Soft tissues: A 2.0 cm nodule is again seen in the right parotid gland. Sinuses and mastoids: The visualized paranasal sinuses are clear. There is trace right mastoid effusion. The left mastoid air cells are well pneumatized. Orbits: The bony orbits are grossly intact. IMPRESSION: 1. There is no hemorrhage, mass effect, or evidence of acute territorial ischemia by CT criteria. 2. Subcentimeter lesions seen by MRI are not apparent on CT. 3. A 2.0 cm right parotid lesion is again noted. ACT 112: Negative or not required by law. Electronically signed by: Anthony Gonzales M.D. 09/14/2023 6:01 PM Discharge Plan Visit Data Chief Complaint: Hypotension Stated Complaint: LOW BLOOD PRESSURE,WEAK,TIRED ED Provider: Vignesh Hastings Discharge Problem: Pneumonia, Atrial fibrillation with rapid ventricular response, Hypotension, Metastatic disease, Hypokalemia Patient Disposition: Admitted As Inpatient Discharge Instructions Interventions: ED Discharge Assessment Last Done: 09/14/23 21:57 Discharge Problem: Pneumonia Qualifiers: Pneumonia type: aspiration pneumonia Aspiration pneumonia type: unspecified L aterality: bilateral Lung location: lower lobe of lung Qualified Code(s): J69.0 - Pneumonitis due to inhalation of food and vomit Hypotension Qualifiers: Hypotension type: unspecified hypotension type Qualified Code(s): I95.9 - Hypotension, unspecified Metastatic disease Qualifiers: Area of secondary neoplastic involvement: unspecified site Qualified Code(s): C 79.9 - Secondary malignant neoplasm of unspecified site
[2023-09-14 17:05] LABS: Troponin I High Sensitivity 53.6 pg/ml (0-14)
[2023-09-14 17:09] LABS: Basophils # (auto) 0.04 K/uL (0.00-0.20); Basophils % (auto) 0.5 %; Immature Granulocytes # (auto) 0.22 K/uL (0.01-0.20); Immature Granulocytes % (auto) 2.8 %; Lymphocytes # (auto) 1.08 K/uL (1.20-3.40); Lymphocytes % (auto) 13.7 %; Monocytes # (auto) 0.63 K/uL (0.11-0.59); Neutrophils # (auto) 5.91 K/uL (1.40-6.50)
[2023-09-14] MEDS: METOPROLOL TARTRATE 1 MG/ML VIAL IV STA (17:22)
[2023-09-14 17:25] LABS: Lipase 8 U/L (11-82)
[2023-09-14 17:41] LABS: Thyroid Stimulating Hormone 1.042 uIu/ml (0.300-4.500)
[2023-09-14] MEDS: OPTIRAY 320 125ml IV ONE (17:52)
[2023-09-14] MEDS: MAGNESIUM SULFATE / D5W 1 GM/100 ML BAG IV STA (17:58)
[2023-09-14] MEDS: POTASSIUM CHLORIDE / WTR 10 MEQ/100 ML PLCT IV SCH (17:58)
--- NOTE | 2023-09-14 18:03 | CT Scan Report ---
CT SCAN OF THE BRAIN WITHOUT IV CONTRAST CLINICAL HISTORY: Near syncope. COMPARISON STUDY: MRI of the brain dated 09/10/2023. TECHNIQUE: Unenhanced axial CT scan of the brain is performed from the vertex to the skull base. A do se lowering technique was utilized adhering to the principles of ALARA. FINDINGS: Brain parenchyma: There is age-related involutional change noting moderate to advanced subcortical an d periventricular microangiopathic disease. There is no hemorrhage, mass effect, or evidence of acute territorial ischemia by CT criteria. A focus of right cerebellar encephalomalacia is consistent with a remote insult. Pittman-white matter differentiation is preserved. No extra-axial fluid collection is seen. Ventricles, sulci, cisterns: Prominent secondary to involutional change. Intracranial vasculature: There is atherosclerotic calcification of the cavernous carotid and vertebr al arteries. Calvarium: Unremarkable. Soft tissues: A 2.0 cm nodule is again seen in the right parotid gland. Sinuses and mastoids: The visualized paranasal sinuses are clear. There is trace right mastoid effusi on. The left mastoid air cells are well pneumatized. Orbits: The bony orbits are grossly intact. IMPRESSION: 1. There is no hemorrhage, mass effect, or evidence of acute territorial ischemia by CT criteria. 2. Subcentimeter lesions seen by MRI are not apparent on CT. 3. A 2.0 cm right parotid lesion is again noted. ACT 112: Negative or not required by law. Electronically signed by: Anthony Gonzales M.D. 09/14/2023 6:01 PM
[2023-09-14 18:05] LABS: Adenovirus PCR Not Detected (NotDetected); Bordetella parapertussis PCR Not Detected (NotDetected); Bordetella pertussis PCR Not Detected (NotDetected); Chlamydia pneumoniae PCR Not Detected (NotDetected); Coronavirus 229E PCR Not Detected (NotDetected); Coronavirus CoV-2 (COVID19)PCR Not Detected (NotDetected); Coronavirus HKU1 PCR Not Detected (NotDetected); Coronavirus NL63 PCR Not Detected (NotDetected); Coronavirus OC43PCR Not Detected (NotDetected); Human Metapneumovirus PCR Not Detected (NotDetected); Influenza A PCR Not Detected (NotDetected); Influenza B PCR Not Detected (NotDetected); Mycoplasma pneumoniae PCR Not Detected (NotDetected); Parainfluenza Virus 1 PCR Not Detected (NotDetected); Parainfluenza Virus 2 PCR Not Detected (NotDetected); Parainfluenza Virus 3 PCR Not Detected (NotDetected); Parainfluenza Virus 4 PCR Not Detected (NotDetected); Respiratory Syncytial VirusPCR Not Detected (NotDetected); Rhinovirus/Enterovirus PCR Not Detected (NotDetected)
--- NOTE | 2023-09-14 19:06 | CT Scan Report ---
CT ANGIOGRAM OF THE CHEST; CT SCAN OF THE ABDOMEN AND PELVIS WITH IV CONTRAST CLINICAL HISTORY: Metastatic disease. Acute renal insufficiency. Tachycardia. Atypical chest pain. COMPARISON STUDY: Chest CT dated 05/07/2023. PET/CT dated 06/11/2023. Chest x-ray dated 09/14/2023. TECHNIQUE: Following the IV administration of 118 of Optiray 320, CT angiogram of the chest is perfor med from the upper abdomen to the thoracic inlet utilizing the pulmonary embolus protocol. Images are reviewed in the axial, sagittal, coronal planes. 3-D MIPS images are created and assessed. Subsequen tly, CT scan of the abdomen and pelvis was performed from the lung bases to the proximal femora. Imag es are reviewed in the axial, sagittal, and coronal planes. IV contrast was administered without comp lication. A dose lowering technique was utilized adhering to the principles of ALARA. There is streak artifact from the arms which could not be elevated above the chest or abdomen. CT DOSE: 2511.98 mGy.cm FINDINGS: CHEST: Thyroid: Imaged portions of the thyroid gland are normal in size and attenuation. Thoracic aorta: There is atherosclerotic calcification of the thoracic aorta, which is normal in luzmaria jc and demonstrates bovine variant arch anatomy. No dissection is seen. Pulmonary vasculature: The main pulmonary arteries are dilated suggesting pulmonary artery hypertensi on. There are no filling defects identified in the main, lobar, or segmental pulmonary arteries to in dicate pulmonary embolus. Heart: The heart is enlarged and without pericardial effusion. The coronary arteries and mitral annul us are densely calcified. Lungs and pleural spaces: There is moderate to advanced emphysema. Metallic fiducials are seen in the left upper lobe. A residual left upper lobe nodule image #180 measures 1.1 cm. Multifocal patchy air space consolidation is seen throughout both lungs, greatest in the right middle and right lower lobes . No pleural effusion is identified. The trachea and central airways are clear. Secretions/debris jelena l the left lower lobe airways. There are also foci of mucus plugging on the right. A diffuse peribron chial thickening is observed. Mediastinum: Mediastinal lymphadenopathy as decreased from previous. A residual subcarinal node Measu res 3.7 x 2.3 cm. A prevascular node measures 8 mm short axis. Earnestine: Left hilar adenopathy has decreased from previous. Residual left hilar nodes measure up to at l east 7 mm in short axis. Axillae: There is no axillary lymphadenopathy. Bony thorax: The skeletal structures are osteopenic. No lytic or blastic lesions are identified in th e thorax. Degenerative change is noted in the shoulders and thoracic spine. There are chronic/healed bilateral rib fractures. There is a mild chronic compression deformity of T12. ABDOMEN AND PELVIS: Liver: The contrast-enhanced liver is normal in size, contour, and attenuation. There is no intrahepa tic biliary ductal dilatation. The hepatic veins and portal veins are patent. A 2.8 cm left lobe hepa tic metastasis seen on image #87 was not seen previously. No additional hepatic metastases are identi fied. Gallbladder: Unremarkable. Spleen: Normal in size and attenuation. Pancreas: Moderately atrophic and grossly unremarkable. Adrenal glands: There is increasing nodular thickening of the left adrenal gland consistent with meta static disease. There are also likely small right adrenal metastases. Kidneys: The contrast enhanced kidneys are normal in size and without hydronephrosis. The kidneys enh ance symmetrically. Renal cysts measure up to 2.7 cm. Additional subcentimeter cortical hypodensities also likely represent cysts but are too small for definitive characterization. A 5 mm nonobstructing calculus is noted on the right. Foci of cortical scarring are seen in both kidneys. Abdominal vasculature: There is advanced atherosclerotic calcification and mild ectasia of the abdomi nal aorta. Bowel: There is no bowel obstruction. The appendix is well-visualized and normal. Peritoneum: There is no intraperitoneal free air or abdominal ascites. Lymphadenopathy: None. Pelvic viscera: The bladder, uterus, and adnexa are normal as visualized. Skeletal structures: The skeletal structures are osteopenic. There is an acute inferior plate quinton sourav fracture of L1 with mild loss of height. No retropulsed fragments are seen. There is moderate maria l mbosacral spondylosis. There is evidence of multifocal osteoblastic metastatic disease. Lesions are s een within the bodies of L2, L3, and L4. A left sacral lesion is seen on image #231.. IMPRESSION: 1. There is no evidence of pulmonary embolus in the main, lobar, or segmental pulmonary arteries. 2. Cardiomegaly and emphysema. 3. Multifocal patchy airspace consolidation is typical for pneumonia/aspiration pneumonitis. Correlat e clinically. Radiographic follow-up to resolution is recommended. 4. There is an acute inferior endplate compression fracture of L1. There is minimal loss of height an d no significant retropulsion of fragments. 5. A left upper lobe pulmonary lesion, mediastinal lymphadenopathy, and left hilar lymphadenopathy rivera ve improved as compared to the 06/11/2023 PET examination. Correlate with the oncological history 6. There is evidence of progressive metastatic disease in the abdomen and pelvis. 7. A left lobe hepatic metastasis, adrenal metastases, and metastatic bony disease involving the lumb osacral spine are new findings as compared to 06/11/2023. 8. Additional findings as above. ACT 112: Negative or not required by law. Electronically signed by: Anthony Gonzales M.D. 09/14/2023 7:03 PM
[2023-09-14] MEDS: CEFEPIME 2,000 MG/20 ML VIAL IV STA (19:16)
[2023-09-14] MEDS: metroNIDAZOLE 500 MG/100 ML BAG IV STA (19:22)
--- NOTE | 2023-09-14 20:30 | History & Physical Report ---
Date of Service September 14, 2023 Assessment & Plan (1) Atrial fibrillation with rapid ventricular response: (2) Hypotension: (3) Acute respiratory failure with hypoxia: (4) Multifocal pneumonia: (5) Hypokalemia: (6) Metastatic disease: (7) Primary cancer of left upper lobe of lung: (8) Diabetes: (9) Paroxysmal atrial fibrillation: (10) Hypertension: (11) COPD (chronic obstructive pulmonary disease) with emphysema: Plan Atrial fibrillation with RVR/PAF/history of hypertension/presenting with hypotension- Patient had improved heart rate control and blood pressure with the administration of Lopressor 5 mg IV and 1.5 L of normal saline by the ED The patient will be admitted to telemetry for serial cardiac enzymes, serial EKG's, cardiac rhythm monitoring and a 2-D echocardiogram with Dopplers. Most recent echo from 04/26/2021, with ejection fraction 55% Hold Eliquis, start on Lovenox 1 mg/kg SQ every 12 hours Hold hydrochlorothiazide, losartan, metoprolol succinate Lopressor 2.5 mg IV every 4 hours with hold parameters For potassium 2.9, received 3K riders from the ED For magnesium 1.9, received 1 g magnesium sulfate IV from the ED Multifocal pneumonia/presumptive aspiration- CTA shows new right lower lobe infiltrate, with improved left upper lobe/left- sided lymphadenopathy MRSA swab pending [employer] testing negative Given cefepime and Flagyl IV from the ED Admit on Zosyn 4.5 g IV every 8 hours Duonebs every 4 hours while awake and every 2 hours when necessary. N.p.o. except essential medications Consult speech therapy, as patient is noted to cough and clear her throat continually when eating or drinking Primary left upper lobe lung cancer/metastatic disease- CTA chest, with CT of abdomen and pelvis with IV contrast is negative for PE. Shows multifocal patchy airspace consolidation. Improved left upper lobe lesion, mediastinal lymphadenopathy and left hilar adenopathy Evidence of progressive metastatic disease in the abdomen and pelvis A left lobe hepatic metastasis, adrenal metastases, and metastatic bony disease involving the lumbosacral spine are new findings as compared to 06/11/2023 Last chemotherapy on 08/31. Last radiation therapy on 09/06. Consult hematology/oncology Acute kidney injury/hypokalemia- Creatinine 1.77, with base 0.87 on 09/06 Status post 1.5 L normal saline from the ED Continue NSS at 80 mL/h x 1 L Received 3K riders from the ED Recheck laboratories in a.m. Thrush/likely Gertrude esophagitis/radiation esophagitis- Likely contributing significantly to decreased oral intake Had been on nystatin Fluconazole 200 mg IV daily Pantoprazole 40 mg IV daily Hold on oral steroids Diabetes mellitus- Hold metformin Placed on Accu-Cheks with NovoLog SSI History of Present Illness Chief Complaint: The patient is brought to the emergency department due to family concerns regarding worsening generalized fatigue, decreased oral intake, feeling generally unwell, and having a low blood pressure noted in the outpatient setting earlier today. Primary Care Provider: Karen Stringer DO The patient is a 73-year-old female with a past medical history including atrial fibrillation, primary cancer of left upper lobe of lung, metastatic cancer, posttraumatic subdural hematoma, traumatic subarachnoid hemorrhage, diabetes mellitus, tobacco use, hypertension, hyperlipidemia, generalized anxiety disorder, depression and COPD. Upon presentation to the emergency department, heart rate was atrial fibrillation in the 130s, and blood pressure was 70s/50s. This responded to Lopressor 5 mg IV and 1.5 L of normal saline to systolic blood pressure in the low 100s, and heart rate to the upper 90s. The patient was referred for evaluation for admission to the hospitalist service. Allergies Allergy/AdvReac Type Severity Reaction Status Date / Time atorvastatin [From Lipitor] AdvReac Intermediate Legs go to Verified 09/14/23 14:44 sleep Home Medications Medication Instructions Recorded Confirmed Type acetaminophen 325 mg capsule 650 mg PO Q6H PRN Pain 04/09/21 09/14/23 History (Tylenol) venlafaxine 150 mg 150 mg PO DAILY #90 caps 11/21/22 09/14/23 Rx capsule,extended release 24 hr losartan 100 mg tablet 100 mg PO DAILY #90 tabs 12/30/22 09/14/23 Rx rosuvastatin 20 mg tablet 20 mg PO DAILY #90 tabs 01/09/23 09/14/23 Rx venlafaxine 75 mg capsule,extended 75 mg PO DAILY #90 caps 01/09/23 09/14/23 Rx release 24 hr metformin 500 mg tablet,extended 500 mg PO BID #180 tabs 01/12/23 09/14/23 Rx release 24hr (osmotic) apixaban 5 mg tablet (Eliquis) 5 mg PO BID 05/19/23 09/14/23 History nebulizers #1 ea 07/13/23 09/14/23 Rx metoprolol succinate 200 mg 200 mg PO DAILY #90 tabs 07/28/23 09/14/23 Rx tablet,extended release 24 hr prochlorperazine maleate 10 mg 10 mg PO Q6H PRN n/v 08/04/23 09/14/23 History tablet (Compazine) albuterol sulfate 90 mcg/actuation 2 puff inhalation QID PRN 08/06/23 09/14/23 Rx aerosol inhaler (ProAir HFA) shortness of breath or wheezing #18 grams hydrochlorothiazide 12.5 mg tablet 12.5 mg PO DAILY #90 tabs 08/06/23 09/14/23 Rx dexamethasone 4 mg tablet 20 mg PO DAILY 08/07/23 09/14/23 History fluticasone fur. 200 mcg-umeclid 1 inh inhalation DAILY #60 ea 08/07/23 09/14/23 Rx 62.5 mcg-vilant 25 mcg inhalat.powder (Trelegy Ellipta) clonazepam 1 mg tablet 1 mg PO BID PRN anxiety #90 tabs 08/10/23 09/14/23 Rx ipratropium 0.5 mg-albuterol 3 mg 3 ml inhalation QID #180 mL 08/10/23 09/14/23 Rx (2.5 mg base)/3 mL nebulization soln Magic Mouthwash 300 mL mouthwash 10 ml mucous membrane ACHS 08/17/23 09/14/23 Rx Dysphagia #300 mL sucralfate 1 gram tablet (Carafate) 1 g PO ACHS #90 tabs 08/24/23 09/14/23 Rx varenicline 1 mg tablet (Chantix 1 mg PO BID #60 tabs 08/24/23 09/14/23 Rx Continuing Month Box) tramadol 50 mg tablet 50 mg PO Q8H PRN pain #60 tabs 09/01/23 09/14/23 Rx Past Med/Surg History Medical History Hx of traumatic subdural hematoma ~68 yrs old History of colon polyps Pulmonary nodule Dyspnea on exertion Diabetes Tobacco use Paroxysmal atrial fibrillation follows w/ Dr Segura every 6 mos; controlled w/ meds Hypertension Hyperlipidemia Generalized anxiety disorder Depression COPD (chronic obstructive pulmonary disease) with emphysema Allergic rhinitis Surgical History S/P tonsillectomy and adenoidectomy S/P decompression of ulnar nerve H/O dilation and curettage S/P colonoscopy Family History Sister Breast cancer, Onset Age: 50 Daughter Colorectal cancer Mother Coronary heart disease Diabetes Father Coronary heart disease Lung cancer Myocardial infarction Grandfather (Maternal) Lung cancer Sister Hypothyroid Diabetes Brother Myocardial infarction, Onset Age: 57 Sister Suicide, Onset Age: 40 Manic depression Daughter Colon cancer, Onset Age: 41 Denies family history of Ovarian cancer Prostate cancer Social History Smoking Status: Current every day smoker Tobacco Type: Cigarettes Age Started Using Tobacco: 13; packs per day: 0.75; Cigarettes Per Day: 30 per day- advised; Second Hand Exposure: Yes (Father smoked); Do You Dip or Chew Tobacco: No; Hx Alcohol Use: No Hx Substance Use: No Preferred Language: Uzbek Communication Ability: Effective Visual Impairment: No Limitations Hearing Ability: Normal Surgical Services Coordinator Required: No Beliefs That Will Affect Care: None marital status: / Current Living Situation: Family Current Living Situation Comment: Lives with sister and sister in law 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; How many Children do You have: 1 How many Children do You have Comment: 1 living and 1 Other Information That Helps Us Care for You: No Feels Safe at Home: Yes Safety Concerns: Feels Safe At This Time Childhood Exposure to Second-Hand Smoke: Yes (Father smoked) Diet: regular caffeine: Yes during the past year weight has: increased > 10 lbs Dental Care, Regularly: No 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: 3-4 Times per Week 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 Comment: 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, 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 Seatbelt Use: always Sunscreen Use: Yes Gender Identity: Female Assistive Devices: Denture - Upper and Glasses Review of Systems Review of Systems: The patient denies chest pain, palpitations, shortness of breath, dyspnea on exertion, cough, lower extremity swelling, sore throat, fevers, chills, sweats, nausea, vomiting, diarrhea , constipation, abdominal pain, pelvic pain, blood in urine or stool, dysuria, urinary frequency or urgency, memory loss, loss of consciousness, rash, abnormal bruising or bleeding, imbalance, focal weakness, numbness or tingling in arms or legs, generalized arthralgias or myalgias, back or neck pain, or night sweats. The review of systems is otherwise negative other than for that already noted above, and at least 10 systems have been reviewed. Physical Exam Physical Exam: The patient is awake, alert and oriented 3, well developed and well nourished, normocephalic and atraumatic, lying in bed and in no acute distress. HEENT--PERRL, EOMI, mucous membranes and oropharynx dry. Neck--supple. No JVD. No bruits. Thyroid normal, trachea midline, no adenopathy. Heart--normal S1 and S2. No murmurs, rubs or gallops. Lungs--scattered wheezes bilaterally, with few coarse breath sounds right base. Abdomen--normal bowel sounds and soft. Nontender. Nondistended, no hernias or masses, no organomegaly. Extremities--no cyanosis or clubbing. No edema. There are good distal pulses b/l. Dermatologic--normal skin turgor, normal color, no abnormal lymph nodes, no rash. Neurologic--cranial nerves II through XII grossly intact. Rheumatologic--normal range of motion. Psychiatric--normal affect. Results & Data Results & Data Vital Signs (Past 12 Hours) Vital Signs Temp Pulse Pulse Resp BP BP Pulse Ox 09/14/23 19:10 109 H 26 H 99 09/14/23 19:00 107 H 26 H 94 09/14/23 19:00 107 H 26 H 121/82 94 09/14/23 18:50 107 H 25 H 89 L 09/14/23 18:43 103 H 23 92 09/14/23 18:43 94/67 L 09/14/23 18:40 99 H 21 86 L 09/14/23 18:30 120 H 22 89 L 09/14/23 18:20 107 H 25 H 89 L 09/14/23 18:10 97 H 25 H 91 09/14/23 18:00 108 H 25 H 92 09/14/23 18:00 36.9 C 103 H 20 101/57 L 92 09/14/23 17:37 102 H 101/57 L 09/14/23 17:30 103 H 21 87 L 09/14/23 17:30 101/57 L 09/14/23 17:22 111 H 97/62 L 09/14/23 17:20 111 H 24 87 L 09/14/23 17:10 111 H 25 H 91 09/14/23 17:00 112 H 24 93 09/14/23 17:00 97/62 L 09/14/23 16:54 131 H 09/14/23 16:50 105 H 22 90 09/14/23 16:40 124 H 23 97 09/14/23 16:31 134 H 26 H 97 09/14/23 16:31 108/57 L 09/14/23 16:30 130 H 26 H 93 09/14/23 16:23 36.9 C 130 H 20 96/54 L 92 09/14/23 16:23 92 09/14/23 16:22 133 H 27 H 92 09/14/23 16:05 36.9 C 69 18 76/55 L 94 O2 Del Method O2 Flow Rate 09/14/23 19:10 09/14/23 19:00 09/14/23 19:00 Nasal Cannula 2 09/14/23 18:50 Room Air 09/14/23 18:43 09/14/23 18:43 09/14/23 18:40 09/14/23 18:30 09/14/23 18:20 09/14/23 18:10 09/14/23 18:00 09/14/23 18:00 Room Air 09/14/23 17:37 09/14/23 17:30 09/14/23 17:30 09/14/23 17:22 09/14/23 17:20 09/14/23 17:10 09/14/23 17:00 09/14/23 17:00 09/14/23 16:54 09/14/23 16:50 09/14/23 16:40 09/14/23 16:31 09/14/23 16:31 09/14/23 16:30 09/14/23 16:23 Room Air 09/14/23 16:23 Room Air 09/14/23 16:22 09/14/23 16:05 Room Air Laboratory Results Laboratory Results WBC 7.88 K/ul (4.8-10.8) 09/14/23 16:20 RBC 3.98 M/uL (4.20-5.40) L 09/14/23 16:20 Hgb 12.3 g/dl (12.0-16.0) 09/14/23 16:20 Hct 37.2 % (37.0-47.0) 09/14/23 16:20 MCV 93.5 fL (80.0-100.0) 09/14/23 16:20 MCH 30.9 pg (25.0-34.0) 09/14/23 16:20 MCHC 33.1 g/dL (32.0-36.0) 09/14/23 16:20 RDW Std Deviation 57.2 fL (36.4-46.3) H 09/14/23 16:20 RDW Coeff of Jayda 17.4 % (11.5-14.5) H 09/14/23 16:20 Plt Count 197 K/uL (130-400) 09/14/23 16:20 MPV 10.6 fL (9.4-12.4) 09/14/23 16:20 Immature Gran % (Auto) 2.8 % 09/14/23 16:20 Neut % (Auto) 75.0 % 09/14/23 16:20 Lymph % (Auto) 13.7 % 09/14/23 16:20 [place] % (Auto) 8.0 % 09/14/23 16:20 Eos % (Auto) 0.0 % 09/14/23 16:20 Baso % (Auto) 0.5 % 09/14/23 16:20 Neut # (Auto) 5.91 K/uL (1.40-6.50) 09/14/23 16:20 Lymph # (Auto) 1.08 K/uL (1.20-3.40) L 09/14/23 16:20 [place] # (Auto) 0.63 K/uL (0.11-0.59) H 09/14/23 16:20 Eos # (Auto) 0.00 K/uL (0.00-0.50) 09/14/23 16:20 Baso # (Auto) 0.04 K/uL (0.00-0.20) 09/14/23 16:20 Immature Gran # (Auto) 0.22 K/uL (0.01-0.20) H 09/14/23 16:20 Absolute Nucleated RBC 0.03 K/uL (0.00-0.12) 09/14/23 16:20 Nucleated RBC % (auto) 0.4 % 09/14/23 16:20 Sodium 141 mmol/L (136-145) 09/14/23 16:20 Potassium 2.9 mmol/L (3.5-5.1) L 09/14/23 16:20 Chloride 100 mmol/L (98-107) 09/14/23 16:20 Carbon Dioxide 28 mmol/L (21-32) 09/14/23 16:20 Anion Gap 13 (3-11) H 09/14/23 16:20 BUN 76 mg/dl (6-23) H 09/14/23 16:20 Creatinine 1.77 mg/dl (0.6-1.2) H 09/14/23 16:20 Est Cr Clr Drug Dosing Not Reportable 09/14/23 16:20 Est GFR ( Amer) 32.0 ml/min 09/14/23 16:20 Est GFR (Non-Af Amer) 27.6 ml/min 09/14/23 16:20 BUN/Creatinine Ratio 42.9 (10-20) H 09/14/23 16:20 Glucose 158 mg/dl (70-99(Fasting)) H 09/14/23 16:20 Lactate 1.1 mmol/L (0.4-2.0) 09/14/23 16:30 Calcium 9.3 mg/dl (8.6-10.3) 09/14/23 16:20 Phosphorus 3.0 mg/dl (2.5-4.9) 09/14/23 16:20 Magnesium 1.9 mg/dl (1.7-2.4) 09/14/23 16:20 Total Bilirubin 0.5 mg/dl (0.2-1.0) 09/14/23 16:20 AST 19 U/L (13-39) 09/14/23 16:20 ALT 16 U/L (7-52) 09/14/23 16:20 Alkaline Phosphatase 101 U/L (34-104) 09/14/23 16:20 Troponin I High Sens 38.8 pg/ml (0-14) H D 09/14/23 18:10 Total Protein 7.0 gm/dl (6.0-8.3) 09/14/23 16:20 Albumin 3.6 gm/dl (3.4-5.0) 09/14/23 16:20 Globulin 3.4 gm/dl (2.5-4.0) 09/14/23 16:20 Albumin/Globulin Ratio 1.1 (0.9-2) 09/14/23 16:20 Lipase 8 U/L (11-82) L 09/14/23 16:20 TSH 1.042 uIu/ml (0.300-4.500) 09/14/23 16:20 Nasal Screen MRSA (PCR) Negative (Negative) 09/14/23 19:03 Adenovirus (PCR) Not Detected (NotDetected) 09/14/23 17:05 B. pertussis DNA (PCR) Not Detected (NotDetected) 09/14/23 17:05 B.parapertussis DNA PCR Not Detected (NotDetected) 09/14/23 17:05 C. pneumoniae DNA (PCR) Not Detected (NotDetected) 09/14/23 17:05 Coronavirus OC43 (PCR) Not Detected (NotDetected) 09/14/23 17:05 Coronavirus HKU1 (PCR) Not Detected (NotDetected) 09/14/23 17:05 Coronavirus 229E (PCR) Not Detected (NotDetected) 09/14/23 17:05 SARS-CoV-2 (PCR) Not Detected (NotDetected) 09/14/23 17:05 Coronavirus NL63 (PCR) Not Detected (NotDetected) 09/14/23 17:05 Human Metapneumovir PCR Not Detected (NotDetected) 09/14/23 17:05 Influenza Type A (PCR) Not Detected (NotDetected) 09/14/23 17:05 Influenza Type B (PCR) Not Detected (NotDetected) 09/14/23 17:05 M. pneumoniae (PCR) Not Detected (NotDetected) 09/14/23 17:05 Parainfluenza 1 (PCR) Not Detected (NotDetected) 09/14/23 17:05 Parainfluenza 2 (PCR) Not Detected (NotDetected) 09/14/23 17:05 Parainfluenza 3 (PCR) Not Detected (NotDetected) 09/14/23 17:05 Parainfluenza 4 (PCR) Not Detected (NotDetected) 09/14/23 17:05 RSV (PCR) Not Detected (NotDetected) 09/14/23 17:05 Entero/Rhino (PCR) Not Detected (NotDetected) 09/14/23 17:05 Blood Type A Positive 09/14/23 16:57 Antibody Screen NEGATIVE 09/14/23 16:57 Impressions Chest X-Ray 09/14/23 16:07 XR chest 1V portable CLINICAL HISTORY: hypotension, lung CA history COMPARISON STUDY: Chest radiograph May 19, 2023. PET/CT June 11, 2023. Treatment planning CT July 13, 2023. FINDINGS: Left upper lobe fiducial marker is in place. Left upper lobe airspace opacity on CT of July 13, 2023 has improved. Mild right lower lung opacities. No evidence for pulmonary edema. There is no pneumothorax or pleural effusion. Cardiomediastinal silhouette is stable. IMPRESSION: 1. Patchy right lower lung opacities which may be infectious. 2. Interval improvement in left upper lobe airspace opacity. ACT 112: Negative or not required by law. Electronically signed by: Ben Stringer M.D. 09/14/2023 4:41 PM Abdomen/Pelvis CT 09/14/23 17:17 CT ANGIOGRAM OF THE CHEST; CT SCAN OF THE ABDOMEN AND PELVIS WITH IV CONTRAST CLINICAL HISTORY: Metastatic disease. Acute renal insufficiency. Tachycardia. Atypical chest pain. COMPARISON STUDY: Chest CT dated 05/07/2023. PET/CT dated 06/11/2023. Chest x-ray dated 09/14/2023. TECHNIQUE: Following the IV administration of 118 of Optiray 320, CT angiogram of the chest is performed from the upper abdomen to the thoracic inlet utilizing the pulmonary embolus protocol. Images are reviewed in the axial, sagittal, coronal planes. 3-D MIPS images are created and assessed. Subsequently, CT scan of the abdomen and pelvis was performed from the lung bases to the proximal femora. Images are reviewed in the axial, sagittal, and coronal planes. IV contrast was administered without complication. A dose lowering technique was utilized adhering to the principles of ALARA. There is streak artifact from the arms which could not be elevated above the chest or abdomen. CT DOSE: 2511.98 mGy.cm FINDINGS: CHEST: Thyroid: Imaged portions of the thyroid gland are normal in size and attenuat ion. Thoracic aorta: There is atherosclerotic calcification of the thoracic aorta, which is normal in caliber and demonstrates bovine variant arch anatomy. No dissection is seen. Pulmonary vasculature: The main pulmonary arteries are dilated suggesting pulmonary artery hypertension. There are no filling defects identified in the main, lobar, or segmental pulmonary arteries to indicate pulmonary embolus. Heart: The heart is enlarged and without pericardial effusion. The coronary arteries and mitral annulus are densely calcified. Lungs and pleural spaces: There is moderate to advanced emphysema. Metallic fiducials are seen in the left upper lobe. A residual left upper lobe nodule image #180 measures 1.1 cm. Multifocal patchy airspace consolidation is seen throughout both lungs, greatest in the right middle and right lower lobes. No pleural effusion is identified. The trachea and central airways are clear. Secretions/debris fill the left lower lobe airways. There are also foci of mucus plugging on the right. A diffuse peribronchial thickening is observed. Mediastinum: Mediastinal lymphadenopathy as decreased from previous. A residual subcarinal node Measures 3.7 x 2.3 cm. A prevascular node measures 8 mm short axis. Earnestine: Left hilar adenopathy has decreased from previous. Residual left hilar nodes measure up to at least 7 mm in short axis. Axillae: There is no axillary lymphadenopathy. Bony thorax: The skeletal structures are osteopenic. No lytic or blastic lesions are identified in the thorax. Degenerative change is noted in the shoulders and thoracic spine. There are chronic/healed bilateral rib fractures. There is a mild chronic compression deformity of T12. ABDOMEN AND PELVIS: Liver: The contrast-enhanced liver is normal in size, contour, and attenuation. There is no intrahepatic biliary ductal dilatation. The hepatic veins and portal veins are patent. A 2.8 cm left lobe hepatic metastasis seen on image #87 was not seen previously. No additional hepatic metastases are identified. Gallbladder: Unremarkable. Spleen: Normal in size and attenuation. Pancreas: Moderately atrophic and grossly unremarkable. Adrenal glands: There is increasing nodular thickening of the left adrenal gland consistent with metastatic disease. There are also likely small right adrenal metastases. Kidneys: The contrast enhanced kidneys are normal in size and without hydronephrosis. The kidneys enhance symmetrically. Renal cysts measure up to 2.7 cm. Additional subcentimeter cortical hypodensities also likely represent cysts but are too small for definitive characterization. A 5 mm nonobstructing calculus is noted on the right. Foci of cortical scarring are seen in both kidneys. Abdominal vasculature: There is advanced atherosclerotic calcification and mild ectasia of the abdominal aorta. Bowel: There is no bowel obstruction. The appendix is well-visualized and normal. Peritoneum: There is no intraperitoneal free air or abdominal ascites. Lymphadenopathy: None. Pelvic viscera: The bladder, uterus, and adnexa are normal as visualized. Skeletal structures: The skeletal structures are osteopenic. There is an acute inferior plate compression fracture of L1 with mild loss of height. No retropulsed fragments are seen. There is moderate lumbosacral spondylosis. There is evidence of multifocal osteoblastic metastatic disease. Lesions are seen within the bodies of L2, L3, and L4. A left sacral lesion is seen on image #231.. IMPRESSION: 1. There is no evidence of pulmonary embolus in the main, lobar, or segmental pulmonary arteries. 2. Cardiomegaly and emphysema. 3. Multifocal patchy airspace consolidation is typical for pneumonia/aspiration pneumonitis. Correlate clinically. Radiographic follow-up to resolution is recommended. 4. There is an acute inferior endplate compression fracture of L1. There is minimal loss of height and no significant retropulsion of fragments. 5. A left upper lobe pulmonary lesion, mediastinal lymphadenopathy, and left hilar lymphadenopathy have improved as compared to the 06/11/2023 PET examination. Correlate with the oncological history 6. There is evidence of progressive metastatic disease in the abdomen and pelvis. 7. A left lobe hepatic metastasis, adrenal metastases, and metastatic bony disease involving the lumbosacral spine are new findings as compared to 06/11/19. 8. Additional findings as above. ACT 112: Negative or not required by law. Electronically signed by: Anthony Gonzales M.D. 09/14/2023 7:03 PM Chest CTA 09/14/23 17:17 CT ANGIOGRAM OF THE CHEST; CT SCAN OF THE ABDOMEN AND PELVIS WITH IV CONTRAST CLINICAL HISTORY: Metastatic disease. Acute renal insufficiency. Tachycardia. Atypical chest pain. COMPARISON STUDY: Chest CT dated 05/07/2023. PET/CT dated 06/11/2023. Chest x-ray dated 09/14/2023. TECHNIQUE: Following the IV administration of 118 of Optiray 320, CT angiogram of the chest is performed from the upper abdomen to the thoracic inlet utilizing the pulmonary embolus protocol. Images are reviewed in the axial, sagittal, coronal planes. 3-D MIPS images are created and assessed. Subsequently, CT scan of the abdomen and pelvis was performed from the lung bases to the proximal femora. Images are reviewed in the axial, sagittal, and coronal planes. IV contrast was administered without complication. A dose lowering technique was utilized adhering to the principles of ALARA. There is streak artifact from the arms which could not be elevated above the chest or abdomen. CT DOSE: 2511.98 mGy.cm FINDINGS: CHEST: Thyroid: Imaged portions of the thyroid gland are normal in size and attenuation. Thoracic aorta: There is atherosclerotic calcification of the thoracic aorta, which is normal in caliber and demonstrates bovine variant arch anatomy. No dissection is seen. Pulmonary vasculature: The main pulmonary arteries are dilated suggesting pulmonary artery hypertension. There are no filling defects identified in the main, lobar, or segmental pulmonary arteries to indicate pulmonary embolus. Heart: The heart is enlarged and without pericardial effusion. The coronary arteries and mitral annulus are densely calcified. Lungs and pleural spaces: There is moderate to advanced emphysema. Metallic fiducials are seen in the left upper lobe. A residual left upper lobe nodule image #180 measures 1.1 cm. Multifocal patchy airspace consolidation is seen throughout both lungs, greatest in the right middle and right lower lobes. No pleural effusion is identified. The trachea and central airways are clear. Secretions/debris fill the left lower lobe airways. There are also foci of mucus plugging on the right. A diffuse peribronchial thickening is observed. Mediastinum: Mediastinal lymphadenopathy as decreased from previous. A residual subcarinal node Measures 3.7 x 2.3 cm. A prevascular node measures 8 mm short axis. Earnestine: Left hilar adenopathy has decreased from previous. Residual left hilar nodes measure up to at least 7 mm in short axis. Axillae: There is no axillary lymphadenopathy. Bony thorax: The skeletal structures are osteopenic. No lytic or blastic lesions are identified in the thorax. Degenerative change is noted in the shoulders and thoracic spine. There are chronic/healed bilateral rib fractures. There is a mild chronic compression deformity of T12. ABDOMEN AND PELVIS: Liver: The contrast-enhanced liver is normal in size, contour, and attenuation. There is no intrahepatic biliary ductal dilatation. The hepatic veins and portal veins are patent. A 2.8 cm left lobe hepatic metastasis seen on image #87 was not seen previously. No additional hepatic metastases are identified. Gallbladder: Unremarkable. Spleen: Normal in size and attenuation. Pancreas: Moderately atrophic and grossly unremarkable. Adrenal glands: There is increasing nodular thickening of the left adrenal gland consistent with metastatic disease. There are also likely small right adrenal metastases. Kidneys: The contrast enhanced kidneys are normal in size and without hydronephrosis. The kidneys enhance symmetrically. Renal cysts measure up to 2.7 cm. Additional subcentimeter cortical hypodensities also likely represent cysts but are too small for definitive characterization. A 5 mm nonobstructing calculus is noted on the right. Foci of cortical scarring are seen in both kidneys. Abdominal vasculature: There is advanced atherosclerotic calcification and mild ectasia of the abdominal aorta. Bowel: There is no bowel obstruction. The appendix is well-visualized and normal. Peritoneum: There is no intraperitoneal free air or abdominal ascites. Lymphadenopathy: None. Pelvic viscera: The bladder, uterus, and adnexa are normal as visualized. Skeletal structures: The skeletal structures are osteopenic. There is an acute inferior plate compression fracture of L1 with mild loss of height. No retropulsed fragments are seen. There is moderate lumbosacral spondylosis. There is evidence of multifocal osteoblastic metastatic disease. Lesions are seen within the bodies of L2, L3, and L4. A left sacral lesion is seen on image #231.. IMPRESSION: 1. There is no evidence of pulmonary embolus in the main, lobar, or segmental pulmonary arteries. 2. Cardiomegaly and emphysema. 3. Multifocal patchy airspace consolidation is typical for pneumonia/aspiration pneumonitis. Correlate clinically. Radiographic follow-up to resolution is recommended. 4. There is an acute inferior endplate compression fracture of L1. There is mini mal loss of height and no significant retropulsion of fragments. 5. A left upper lobe pulmonary lesion, mediastinal lymphadenopathy, and left hilar lymphadenopathy have improved as compared to the 06/11/2023 PET examination. Correlate with the oncological history 6. There is evidence of progressive metastatic disease in the abdomen and pelvis. 7. A left lobe hepatic metastasis, adrenal metastases, and metastatic bony disease involving the lumbosacral spine are new findings as compared to 06/11/2023. 8. Additional findings as above. ACT 112: Negative or not required by law. Electronically signed by: Anthony Gonzales M.D. 09/14/2023 7:[address] 09/14/23 17:17 CT SCAN OF THE BRAIN WITHOUT IV CONTRAST CLINICAL HISTORY: Near syncope. COMPARISON STUDY: MRI of the brain dated 09/10/2023. TECHNIQUE: Unenhanced axial CT scan of the brain is performed from the vertex to the skull base. A dose lowering technique was utilized adhering to the p rinciples of ALA. FINDINGS: Brain parenchyma: There is age-related involutional change noting moderate to advanced subcortical and periventricular microangiopathic disease. There is no hemorrhage, mass effect, or evidence of acute territorial ischemia by CT criteria. A focus of right cerebellar encephalomalacia is consistent with a remote insult. Pittman-white matter differentiation is preserved. No extra-axial fluid collection is seen. Ventricles, sulci, cisterns: Prominent secondary to involutional change. Intracranial vasculature: There is atherosclerotic calcification of the [place] carotid and vertebral arteries. Calvarium: Unremarkable. Soft tissues: A 2.0 cm nodule is again seen in the right parotid gland. Sinuses and mastoids: The visualized paranasal sinuses are clear. There is trace right mastoid effusion. The left mastoid air cells are well pneumatized. Orbits: The bony orbits are grossly intact. IMPRESSION: 1. There is no hemorrhage, mass effect, or evidence of acute territorial ischemia by CT criteria. 2. Subcentimeter lesions seen by MRI are not apparent on CT. 3. A 2.0 cm right parotid lesion is again noted. ACT 112: Negative or not required by law. Electronically signed by: Anthony Gonzales M.D. 09/14/2023 6:01 PM Code Status & VTE Plan Code Status Full code VTE Prophylaxis Plan VTE Prophylaxis will be ordered: Yes PG Care Time/CCT Total # of Minutes Spent Total Time Spent with Patient: Total time spent is greater than 50% in coordination of care (as documented) at patient's floor/unit and/or counseling patient: Coding Level of Care Code 56430 INT INP/OBS CARE 75MIN Diagnoses Atrial fibrillation with rapid ventricular response I48.91 Hypotension I95.9 Hypotension type: unspecified hypotension type Acute respiratory failure with hypoxia J96.01 Multifocal pneumonia J18.9 Hypokalemia E87.6 Metastatic disease C79.9 Area of secondary neoplastic involvement: unspecified site Primary cancer of left upper lobe of lung C34.12 Type 2 diabetes mellitus without complication, without long-term current use of insulin E11.9 Diabetes mellitus type: type 2 Diabetes mellitus retirement insulin use: without sports activities foul judge use Diabetes mellitus complication status: without complication Paroxysmal atrial fibrillation I48.0 Primary hypertension I10 Hypertension type: primary hypertension 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 (2) Hypotension Hypotension type: unspecified hypotension type Qualified Code(s): I95.9 - Hypotension, unspecified (6) Metastatic disease Area of secondary neoplastic involvement: unspecified site Qualified Code(s): C79.9 - Secondary malignant neoplasm of unspecified site (8) Diabetes Diabetes mellitus type: type 2 Diabetes mellitus retirement insulin use: without sports activities foul judge use Diabetes mellitus complication status: without complication Qualified Code(s): E11.9 - Type 2 diabetes mellitus without complications (10) Hypertension Hypertension type: primary hypertension Qualified Code(s): I10 - Essential (primary) hypertension
[2023-09-14] MEDS ORDERED: ACETAMINOPHEN 1000 MG/100 ML IV IV PRN (22:25)
[2023-09-14] MEDS ORDERED: ONDANSETRON INJ 2 MG/ML 2 ML VIAL IV PRN (22:25)
[2023-09-14] MEDS: SODIUM CHLORIDE 0.9% 1,000 ML IV SCH (22:47)
[2023-09-14] MEDS ORDERED: ALBUT/IPRATROP 3MG/0.5MG NEB 3 ML VIAL NEB PRN (23:00)
[2023-09-14] MEDS ORDERED: ACETAMINOPHEN 1,000 MG/100 ML VIAL IV PRN (23:00)
[2023-09-14] MEDS: PIPERACILLIN/TAZOBACTAM 4.5 GM in DEXTROSE 5% MINI-B 100 ML IV ONE (23:20)
[2023-09-14] MEDS: ENOXAPARIN 80 MG/0.8 ML SYR SQ SCH (23:20)
[2023-09-14] MEDS: METOPROLOL TARTRATE 1 MG/ML VIAL IV SCH (23:34)
[2023-09-15] MEDS ORDERED: GLUCAGON FOR INJ 1 MG VIAL SQ PRN (00:38)
[2023-09-15] MEDS ORDERED: GLUCOSE 10 TAB/TUBE PO PRN (00:38)
[2023-09-15] MEDS ORDERED: GLUCOSE 40% GEL 15 GM TUBE PO PRN (00:38)
[2023-09-15] MEDS ORDERED: CARBOHYDRATES FOR HYPOGLYCEMIA PO PRN (00:38)
[2023-09-15] MEDS ORDERED: DEXTROSE 50% 50 ML SYRINGE IV PRN (00:38)
[2023-09-15] MEDS: PIPERACILLIN/TAZOBACTAM 4.5 GM in DEXTROSE 5% MINI-B 100 ML IV SCH (03:35)
[2023-09-15] MEDS: INSULIN ASPART PER UNIT CHARGE SC SCH ×2 (06:20→17:14)
[2023-09-15] MEDS: ALBUT/IPRATROP 3MG/0.5MG NEB 3 ML VIAL NEB SCH (07:10)
[2023-09-15 08:02] LABS: Basophils # (auto) 0.03 K/uL (0.00-0.20); Basophils % (auto) 0.6 %; Eosinophils # (auto) 0.01 K/uL (0.00-0.50); Eosinophils % (auto) 0.2 %; Hematocrit (blood only) 32.9 % (37.0-47.0); Hemoglobin 11.4 g/dl (12.0-16.0); Immature Granulocytes # (auto) 0.11 K/uL (0.01-0.20); Immature Granulocytes % (auto) 2.2 %; Lymphocytes # (auto) 0.43 K/uL (1.20-3.40); Lymphocytes % (auto) 8.7 %; Mean Corpuscular Hemoglobin 31.5 pg (25.0-34.0); Mean Corpuscular Hgb Conc 34.7 g/dL (32.0-36.0); Mean Corpuscular Volume 90.9 fL (80.0-100.0); Mean Platelet Volume 10.7 fL (9.4-12.4); Monocytes # (auto) 0.35 K/uL (0.11-0.59); Monocytes % (auto) 7.1 %; Neutrophils # (auto) 3.99 K/uL (1.40-6.50); Neutrophils % (auto) 81.2 %; Platelet Count 170 K/uL (130-400); RDW Coefficient of Variation 17.3 % (11.5-14.5); RDW Standard Deviation 56.3 fL (36.4-46.3); Red Blood Count 3.62 M/uL (4.20-5.40); White Blood Count 4.92 K/ul (4.8-10.8)
[2023-09-15 08:32] LABS: Albumin Globulin Ratio 1.1 (0.9-2); Albumin Level 3.1 gm/dl (3.4-5.0); BUN Creatinine Ratio 46.7 (10-20); Bilirubin,Total 0.5 mg/dl (0.2-1.0); Calcium 8.5 mg/dl (8.6-10.3); Est GFR (African American) 60.2 ml/min; Est GFR (Non-African American) 51.9 ml/min; Globulin 2.9 gm/dl (2.5-4.0); Potassium 2.6 mmol/L (3.5-5.1)
[2023-09-15 09:23] LABS: Estimated Average Glucose 157 mg/dl; Hemoglobin A1C 7.1 % (4.5-5.6)
[2023-09-15] MEDS: POTASSIUM CHLORIDE / WTR 10 MEQ/100 ML PLCT IV SCH (09:44)
[2023-09-15] MEDS: FLUCONAZOLE 200 MG/100 ML BAG IV SCH (09:44)
[2023-09-15] MEDS: POTASSIUM CHLORIDE 20 MEQ/15 ML UDC PO SCH (10:13)
--- NOTE | 2023-09-15 10:47 | XCELERA ---
[id number]
[2023-09-15] MEDS: ENOXAPARIN 80 MG/0.8 ML SYR SQ SCH (11:35)
[2023-09-15] MEDS: PANTOprazole 40 MG in SYRINGE 0 ML IV SCH (11:36)
[2023-09-15] MEDS ORDERED: traMADol HCL 50 MG TABLET PO PRN (11:47)
[2023-09-15] MEDS ORDERED: clonazePAM 1 MG TAB PO PRN (11:47)
[2023-09-15] MEDS ORDERED: METOPROLOL TARTRATE 1 MG/ML VIAL IV PRN (11:51)
[2023-09-15] MEDS: METOPROLOL SUCC 50MG EXT REL TAB PO SCH (12:45)
[2023-09-15] MEDS: VENLAFAXINE HCL XR 75 MG CAPXR PO SCH (12:46)
[2023-09-15] MEDS: VENLAFAXINE HCL XR 150 MG CAPXR PO SCH (12:46)
[2023-09-15] MEDS ORDERED: Nursing to Pharmacy Communication SCH (15:00)
--- NOTE | 2023-09-15 16:49 | Oncology Consultation ---
Date of Consultation September 15, 2023 Assessment & Plan (1) Lung cancer: The patient has finished concurrent chemoradiation. At this point from an oncological standpoint she is on a wait and watch strategy. We are waiting to start her immunotherapy with Imfinzi. From a lung cancer standpoint oncological no intervention is needed. It already seems that her lung cancer has shrunk and she has responded to the chemoradiation which we have provided. Clinically it is a matter of stabilizing the patient, continue conservative management for acute hypoxic respiratory failure with antibiotics as she is currently on Zosyn. Treated for the pneumonia. We will follow her outpatient once she is discharged from a lung cancer standpoint. Plan Medical oncology will continue to follow the patient make appropriate recommendations. Continue management of her acute infectious process and acute hypoxic respiratory failure related to her underlying COPD and active smoking. Oncologically no urgent intervention is needed or warranted. History of Present Illness Reason for Consultation: Lung adenocarcinoma acute hypoxic respiratory failure ? sepsis and pneumonia Attending Physician: Jessica Naidu MD History of Present Illness the patient is a very pleasant 73-year-old woman who is well-known from me because of her prior history of adenocarcinoma of the lung who recently finished chemoradiation. Currently is admitted to the hospital with acute hypoxic respiratory failure, sepsis possible pneumonia. She is currently on antibiotics and on oxygen. She uses oxygen at home. Since her admission in the hospital the patient has been feeling better, his breathing has improved. She had a CT angiogram scan of the chest performed on 09/14/2023 there is no evidence of pulmonary embolus in the main, lobar, or segmental pulmonary arteries. Multifocal patchy airspace consolidation is typical for pneumonia/aspiration pneumonitis. She is currently on Zosyn, is improving clinically. Reports no other symptoms today. Reports no pain. Allergies Allergy/AdvReac Type Severity Reaction Status Date / Time atorvastatin [From Lipitor] AdvReac Intermediate Legs go to Verified 09/14/23 14:44 sleep Home Medications Medication Instructions Recorded Confirmed Type acetaminophen 325 mg capsule 650 mg PO Q6H PRN Pain 04/09/21 09/14/23 History (Tylenol) venlafaxine 150 mg 150 mg PO DAILY #90 caps 11/21/22 09/14/23 Rx capsule,extended release 24 hr losartan 100 mg tablet 100 mg PO DAILY #90 tabs 12/30/22 09/14/23 Rx rosuvastatin 20 mg tablet 20 mg PO DAILY #90 tabs 01/09/23 09/14/23 Rx venlafaxine 75 mg capsule,extended 75 mg PO DAILY #90 caps 01/09/23 09/14/23 Rx release 24 hr metformin 500 mg tablet,extended 500 mg PO BID #180 tabs 01/12/23 09/14/23 Rx release 24hr (osmotic) apixaban 5 mg tablet (Eliquis) 5 mg PO BID 05/19/23 09/14/23 History nebulizers #1 ea 07/13/23 09/14/23 Rx metoprolol succinate 200 mg 200 mg PO DAILY #90 tabs 07/28/23 09/14/23 Rx tablet,extended release 24 hr prochlorperazine maleate 10 mg 10 mg PO Q6H PRN n/v 08/04/23 09/14/23 History tablet (Compazine) albuterol sulfate 90 mcg/actuation 2 puff inhalation QID PRN 08/06/23 09/14/23 Rx aerosol inhaler (ProAir HFA) shortness of breath or wheezing #18 grams hydrochlorothiazide 12.5 mg tablet 12.5 mg PO DAILY #90 tabs 08/06/23 09/14/23 Rx dexamethasone 4 mg tablet 20 mg PO DAILY 08/07/23 09/14/23 History fluticasone fur. 200 mcg-umeclid 1 inh inhalation DAILY #60 ea 08/07/23 09/14/23 Rx 62.5 mcg-vilant 25 mcg inhalat.powder (Trelegy Ellipta) clonazepam 1 mg tablet 1 mg PO BID PRN anxiety #90 tabs 08/10/23 09/14/23 Rx ipratropium 0.5 mg-albuterol 3 mg 3 ml inhalation QID #180 mL 08/10/23 09/14/23 Rx (2.5 mg base)/3 mL nebulization soln Magic Mouthwash 300 mL mouthwash 10 ml mucous membrane ACHS 08/17/23 09/14/23 Rx Dysphagia #300 mL sucralfate 1 gram tablet (Carafate) 1 g PO ACHS #90 tabs 08/24/23 09/14/23 Rx varenicline 1 mg tablet (Chantix 1 mg PO BID #60 tabs 08/24/23 09/14/23 Rx Continuing Month Box) tramadol 50 mg tablet 50 mg PO Q8H PRN pain #60 tabs 09/01/23 09/14/23 Rx Patient History Medical History Hx of traumatic subdural hematoma ~68 yrs old History of colon polyps Pulmonary nodule Dyspnea on exertion Diabetes Tobacco use Paroxysmal atrial fibrillation follows w/ Dr Segura every 6 mos; controlled w/ meds Hypertension Hyperlipidemia Generalized anxiety disorder Depression COPD (chronic obstructive pulmonary disease) with emphysema Allergic rhinitis Surgical History S/P tonsillectomy and adenoidectomy S/P decompression of ulnar nerve H/O dilation and curettage S/P colonoscopy Family History Sister Breast cancer, Onset Age: 50 Daughter Colorectal cancer Mother Coronary heart disease Diabetes Father Coronary heart disease Lung cancer Myocardial infarction Grandfather (Maternal) Lung cancer Sister Hypothyroid Diabetes Brother Myocardial infarction, Onset Age: 57 Sister Suicide, Onset Age: 40 Manic depression Daughter Colon cancer, Onset Age: 41 Denies family history of Ovarian cancer Prostate cancer Social History Smoking Status: Current every day smoker Tobacco Type: Cigarettes Age Started Using Tobacco: 13; packs per day: 0.75; Cigarettes Per Day: 30 per day- advised; Second Hand Exposure: Yes (Father smoked); Do You Dip or Chew Tobacco: No; Hx Alcohol Use: No Hx Substance Use: No Preferred Language: Malaysian Communication Ability: Effective Visual Impairment: No Limitations Hearing Ability: Normal Gas Maker Helper Required: No Beliefs That Will Affect Care: None marital status: / Current Living Situation: Family Current Living Situation Comment: Lives with sister and sister in law 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; How many Children do You have: 1 How many Children do You have Comment: 1 living and 1 Other Information That Helps Us Care for You: No Feels Safe at Home: Yes Safety Concerns: Feels Safe At This Time Childhood Exposure to Second-Hand Smoke: Yes (Father smoked) Diet: regular caffeine: Yes during the past year weight has: increased > 10 lbs Dental Care, Regularly: No 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: 3-4 Times per Week 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 Comment: 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, 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 Seatbelt Use: always Sunscreen Use: Yes Gender Identity: Female Assistive Devices: Denture - Upper, Glasses and Wheelchair Review of Systems Review of Systems: All systems reviewed & are unremarkable except as noted in Subjective Constitutional: as per Subjective / HPI Eyes: as per Subjective / HPI Ear, Nose, Mouth, Throat: as per Subjective / HPI Respiratory: as per Subjective / HPI Cardiovascular: as per Subjective / HPI Gastrointestinal: as per Subjective / HPI Genitourinary: as per Subjective / HPI Musculoskeletal: as per Subjective / HPI Integumentary: as per Subjective / HPI Neurologic: as per Subjective / HPI Psychiatric: as per Subjective / HPI Endocrine: as per Subjective / HPI Physical Exam Constitutional: well developed and well nourished Eyes: PERRL, conjunctivae normal, anicteric sclerae ENMT: external ear and nose normal, oropharynx normal Neck: trachea midline, no thyromegaly Respiratory: normal respiratory effort, lungs clear to auscultation Cardiovascular: RRR, no murmur, no edema Gastrointestinal (Abdomen): normal bowel sounds, soft, nontender, no hepatosplenomegaly Musculoskeletal: no cyanosis or clubbing, extremities motor strength 5/5 Results & Data Vital Signs (Past 12 Hours) Vital Signs Temp Pulse Pulse Resp BP BP Pulse Ox 09/15/23 15:50 36.7 C 115 H 19 126/83 97 09/15/23 14:20 87 20 95 09/15/23 12:42 128 H 20 143/87 H 96 09/15/23 10:17 86 20 98 09/15/23 10:00 115 H 126/74 09/15/23 09:44 119 H 09/15/23 08:49 104 H 114/66 09/15/23 08:00 09/15/23 07:30 36.6 C 112 H 18 129/76 96 09/15/23 07:10 105 H 18 94 O2 Del Method O2 Flow Rate 09/15/23 15:50 Nasal Cannula 2 09/15/23 14:20 Nasal Cannula 2 09/15/23 12:42 Nasal Cannula 2 09/15/23 10:17 Nasal Cannula 3 09/15/23 10:00 09/15/23 09:44 09/15/23 08:49 04/16/24 08:00 Room Air 09/15/23 07:30 Room Air, Nasal Cannula 09/15/23 07:10 Nasal Cannula 3
--- NOTE | 2023-09-15 18:43 | Hospitalist Progress Note ---
Date of Service September 15, 2023 Assessment & Plan (1) Multifocal pneumonia: Plan: 73 y/o with CRISTIN lung cancer just completed chemotherapy and XRT. Future immunotherapy planned. Admitted with multifocal pneumonia or potentially aspiration pneumonitis. -resp biofire and nasal MRSA negative -checked procal which is not elevated -continue pip-tazo -ST consulted - VFSS planned tomorrow, advanced diet meanwhile (2) Atrial fibrillation with rapid ventricular response: Plan: Ordered oral metoprolol and rates improved throughout today though still intermittently elevated -cont po metoprolol -cont PRN IV metoprolol sustained rates >120 -TTE 09/14 reviewed - normal EF, normal volume status. RVSP elevated at 30-40. mod conc LVH. (3) Hypotension: Plan: In ED, rate or volume related and resolved (4) Acute respiratory failure with hypoxia: Plan: Still on 2L pnc but improved, see above (5) Hypokalemia: Plan: 2.9 on admission, replaced and resolved (6) Primary cancer of left upper lobe of lung: Plan: Appreciate heme/onc consult -left lobe hepatic metastasis, adrenal metastases, and metastatic bony disease involving the lumbosacral spine are new findings as compared to 06/11/2023 -follow up as outpatient with Dr. Knowles to plan future immunotherapy (7) Diabetes: (8) Paroxysmal atrial fibrillation: Plan: History of -resume apixaban, resumed metoprolol (9) Hypertension: Plan: HCTZ, losartan held, metoprolol resumed -stop HCTZ on discharge since volume depleted, poor po, hypokalemic on admission (10) COPD (chronic obstructive pulmonary disease) with emphysema: Plan: Not in exacerbation Plan Acute kidney injury Creatinine 1.77, with base 0.87 on 09/06 -prerenal, resolving after IV fluids. Cr 1 today -AM BMP Thrush/likely Gertrude esophagitis/radiation esophagitis- Likely contributing significantly to decreased oral intake Had been on nystatin Fluconazole 200 mg IV daily Pantoprazole 40 mg IV daily Hold on oral steroids Diabetes mellitus- Hold metformin Placed on Accu-Cheks with NovoLog SSI -BG at goal DVT ppx- on DOAC Admission and Anticipated Discharge Date Admission Date: September 14, 2023 Subjective Feels better. Has cough. No dyspnea. No CP. Throat/swallowing pain improved. Physical Exam 2 Physical Exam: VS past 24h reviewed remarkable for tachycardia afib on tele Calm, alert, no distress AO x 4 face symmetric maew Heart irreg irreg tachy no mrg no JVD Lungs - comfortable resp effort, scattered coarse crackles bases and mid guardado ABd s/nd +BT LE wwp no edema. Fingers and toes cool with acrocyanosis - she says chronic Skin w/d no rash Results & Data Results & Data Vital Signs (Past 12 Hours) Vital Signs Temp Pulse Pulse Resp BP BP Pulse Ox 09/15/23 15:50 36.7 C 115 H 19 126/83 97 09/15/23 14:20 87 20 95 09/15/23 12:42 128 H 20 143/87 H 96 09/15/23 10:17 86 20 98 09/15/23 10:00 115 H 126/74 09/15/23 09:44 119 H 09/15/23 08:49 104 H 114/66 09/15/23 08:00 09/15/23 07:30 36.6 C 112 H 18 129/76 96 09/15/23 07:10 105 H 18 94 O2 Del Method O2 Flow Rate 09/15/23 15:50 Nasal Cannula 2 09/15/23 14:20 Nasal Cannula 2 09/15/23 12:42 Nasal Cannula 2 09/15/23 10:17 Nasal Cannula 3 09/15/23 10:00 09/15/23 09:44 09/15/23 08:49 09/15/23 08:00 Room Air 09/15/23 07:30 Room Air, Nasal Cannula 09/15/23 07:10 Nasal Cannula 3 Laboratory Results 09/15/23 07:39 09/15/23 15:11 PG Care Time/CCT Total # of Minutes Spent Total Time Spent with Patient: Total time spent is greater than 50% in coordination of care (as documented) at patient's floor/unit and/or counseling patient: Coding Level of Care Code 75305 SUB INP/OBS CARE 3/50MIN Diagnoses Multifocal pneumonia J18.9 Atrial fibrillation with rapid ventricular response I48.91 Hypotension I95.9 Hypotension type: unspecified hypotension type Acute respiratory failure with hypoxia J96.01 Hypokalemia E87.6 Primary cancer of left upper lobe of lung C34.12 Type 2 diabetes mellitus without complication, without long-term current use of insulin E11.9 Diabetes mellitus type: type 2 Diabetes mellitus parts counterman insulin use: without detention use Diabetes mellitus complication status: without complication Paroxysmal atrial fibrillation I48.0 Primary hypertension I10 Hypertension type: primary hypertension 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
[2023-09-15] MEDS: APIXABAN 5 MG TABLET PO SCH (22:10)
[2023-09-16 08:06] LABS: Basophils # (auto) 0.02 K/uL (0.00-0.20); Basophils % (auto) 0.4 %; Eosinophils # (auto) 0.01 K/uL (0.00-0.50); Eosinophils % (auto) 0.2 %; Hemoglobin 10.9 g/dl (12.0-16.0); Immature Granulocytes # (auto) 0.11 K/uL (0.01-0.20); Immature Granulocytes % (auto) 2.1 %; Lymphocytes # (auto) 0.67 K/uL (1.20-3.40); Lymphocytes % (auto) 13.1 %; Mean Corpuscular Hemoglobin 31.9 pg (25.0-34.0); Mean Corpuscular Hgb Conc 34.1 g/dL (32.0-36.0); Mean Corpuscular Volume 93.6 fL (80.0-100.0); Mean Platelet Volume 10.5 fL (9.4-12.4); Monocytes # (auto) 0.41 K/uL (0.11-0.59); Neutrophils # (auto) 3.91 K/uL (1.40-6.50); Neutrophils % (auto) 76.2 %; Nucleated RBC # (auto) 0.02 K/uL (0.00-0.12); Nucleated RBC % (auto) 0.4 %; Platelet Count 180 K/uL (130-400); RDW Coefficient of Variation 17.7 % (11.5-14.5); RDW Standard Deviation 59.1 fL (36.4-46.3); Red Blood Count 3.42 M/uL (4.20-5.40); White Blood Count 5.13 K/ul (4.8-10.8)
[2023-09-16] MEDS: ROSUVASTATIN CALCIUM 20 MG TAB PO SCH (08:21)
[2023-09-16 08:40] LABS: Albumin Globulin Ratio 1.1 (0.9-2); Albumin Level 3.1 gm/dl (3.4-5.0); BUN Creatinine Ratio 29.3 (10-20); Bilirubin,Total 0.6 mg/dl (0.2-1.0); Calcium 8.4 mg/dl (8.6-10.3); Creatinine Clr Calc Pharmacy 61.4 ml/min; Est GFR (African American) 90.4 ml/min; Globulin 2.9 gm/dl (2.5-4.0); Potassium 3.1 mmol/L (3.5-5.1)
[2023-09-16] MEDS: ALUMINUM/MAGNESIUM SUSP 30 ML UDC PO STA (09:37)
--- NOTE | 2023-09-16 10:53 | Electrocardiogram Report ---
Test Reason : Blood Pressure : / mmHG Vent. Rate : 124 BPM Atrial Rate : 117 BPM P-R Int : 000 ms QRS Dur : 092 ms QT Int : 322 ms P-R-T Axes : 000 093 212 degrees QTc Int : 462 ms Poor data quality, interpretation may be adversely affected Atrial fibrillation with rapid ventricular response Rightward axis Abnormal ECG When compared with ECG of 14-SEP-2023 16:17, No significant change was found Confirmed by Adilson Madrid ([id number] on 09/16/2023 10:52:39 AM Referred By: REFERRED SELF Confirmed By:Hammad Madrid
[2023-09-16] MEDS: POTASSIUM CHLORIDE 20 MEQ/15 ML UDC PO SCH (11:43)
--- NOTE | 2023-09-16 12:27 | Fluoroscopy Report ---
MODIFIED BARIUM SWALLOW CLINICAL HISTORY: r/o aspiration COMPARISON STUDY: None. FLUOROSCOPY TIME: 2.05 minutes. Ka,r: 10.3 mGy. TECHNIQUE: A modified barium swallow was performed in conjunction with Speech Pathology. The patient ingested varying consistencies of barium containing material. Video fluoroscopy was performed. FINDINGS: There were multiple episodes of tracheal aspiration with thin liquids and nectar thick liqu ids. Premature spillage was noted with mildly diminished epiglottic inversion. Residuals were noted w ith multiple consistencies. No tracheal aspiration was identified with pudding or cracker with puddin g consistencies. IMPRESSION: 1. Multiple episodes of tracheal aspiration with thin liquids and nectar thick liquids. No aspiration with pudding or with cracker with pudding consistencies. 2. Full recommendations by Speech pathology to follow. ACT 112: Negative or not required by law. Electronically signed by: Ben Stringer M.D. 09/16/2023 12:25 PM
--- NOTE | 2023-09-16 17:25 | Hospitalist Progress Note ---
Date of Service September 16, 2023 Assessment & Plan (1) Multifocal pneumonia: Plan: 73 y/o with CRISTIN lung cancer just completed chemotherapy and XRT. Future immunotherapy planned. Admitted with multifocal aspiration pneumonia or aspiration pneumonitis. -resp biofire and nasal MRSA negative -checked procal which is not elevated -continue pip-tazo. Not clear that this is infectious process but immunocompromised with recent chemo and cancer so will treat with course of antibiotics. Dysphagia and aspiration -ST consulted - VFSS done today, aspirated on thick and thin liquids. Discussed with ST - better to allow thin liquids (no straws) than to aspirate thickener. -dysphagia likely related to neurological dysfunction from her probable brain mets and also has a few subacute lacunes on recent MRI (2) Atrial fibrillation with rapid ventricular response: Plan: Ordered oral metoprolol and rates improved throughout today though still intermittently elevated -cont po metoprolol -cont PRN IV metoprolol sustained rates >120 -TTE 09/14 reviewed - normal EF, normal volume status. RVSP elevated at 30-40. mod conc LVH. -if potassium normal in AM and rates still elevated consider oral dig load (3) Hypotension: Plan: In ED, rate or volume related and resolved (4) Acute respiratory failure with hypoxia: Plan: Still on 2L pnc but 98%, improved, see above (5) Hypokalemia: Plan: 2.9 on admission, replaced and resolved 3.1 today replacing po -AM BMP (6) Primary cancer of left upper lobe of lung: Plan: Stage 4 lung cancer Appreciate heme/onc consult -left lobe hepatic metastasis, adrenal metastases, and metastatic bony disease involving the lumbosacral spine are new findings as compared to 06/11/2023 -follow up as outpatient with Dr. Knowles to plan future immunotherapy (7) Diabetes: (8) Paroxysmal atrial fibrillation: Plan: History of -resume apixaban, resumed metoprolol (9) Hypertension: Plan: HCTZ, losartan held, metoprolol resumed -stop HCTZ on discharge since volume depleted, poor po, hypokalemic on admission (10) COPD (chronic obstructive pulmonary disease) with emphysema: Plan: Not in exacerbation Plan Acute kidney injury Creatinine 1.77, with base 0.87 on 09/06 -prerenal, resolved after IVF. Thrush/likely Gertrude esophagitis/radiation esophagitis- Likely contributing significantly to decreased oral intake Had been on nystatin Fluconazole 200 mg IV daily Pantoprazole 40 mg IV daily -change to po if eating/drinking better tomorrow Diabetes mellitus- Hold metformin Placed on Accu-Cheks with NovoLog SSI -BG at goal DVT ppx- on DOAC Admission and Anticipated Discharge Date Admission Date: September 14, 2023 Subjective breathing is a little better though still YAÑEZ and still on O2 HR has been 100-120 in afib Physical Exam 2 Physical Exam: VS past 24h reviewed remarkable for tachycardia afib on tele Calm, alert, no distress AO x 4 face symmetric maew Heart irreg irreg tachy no mrg no JVD Lungs - comfortable resp effort, coarse crackles both bases no wheezing ABd s/nd +BT LE wwp no edema. Skin w/d no rash Results & Data Results & Data Vital Signs (Past 12 Hours) Vital Signs Temp Pulse Pulse Resp BP Pulse Ox O2 Del Method 09/16/23 15:00 36.5 C 119 H 18 145/74 H 98 Nasal Cannula 09/16/23 14:37 107 H 20 98 Nasal Cannula 09/16/23 08:00 116 H 09/16/23 08:00 Nasal Cannula 09/16/23 08:00 36.6 C 108 H 16 135/71 97 Nasal Cannula 09/16/23 07:11 76 18 96 Nasal Cannula O2 Flow Rate 09/16/23 15:00 2 09/16/23 14:37 3 09/16/23 08:00 09/16/23 08:00 3 09/16/23 08:00 2 09/16/23 07:11 2 Laboratory Results 09/16/23 07:32 09/16/23 07:32 PG Care Time/CCT Total # of Minutes Spent Total Time Spent with Patient: Total time spent is greater than 50% in coordination of care (as documented) at patient's floor/unit and/or counseling patient: Coding Level of Care Code 35824 SUB INP/OBS CARE 2/35MIN Diagnoses Multifocal pneumonia J18.9 Atrial fibrillation with rapid ventricular response I48.91 Hypotension I95.9 Hypotension type: unspecified hypotension type Acute respiratory failure with hypoxia J96.01 Hypokalemia E87.6 Primary cancer of left upper lobe of lung C34.12 Type 2 diabetes mellitus without complication, without long-term current use of insulin E11.9 Diabetes mellitus complication status: without complication Diabetes mellitus technician terminal and repeater insulin use: without technician terminal and repeater use Diabetes mellitus type: type 2 Paroxysmal atrial fibrillation I48.0 Primary hypertension I10 Hypertension type: primary hypertension 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 (3) Hypotension Hypotension type: unspecified hypotension type Qualified Code(s): I95.9 - Hypotension, unspecified (7) Diabetes Diabetes mellitus complication status: without complication Diabetes mellitus senior living insulin use: without technician terminal and repeater use Diabetes mellitus type: type 2 Qualified Code(s): E11.9 - Type 2 diabetes mellitus without complications (9) Hypertension Hypertension type: primary hypertension Qualified Code(s): I10 - Essential (primary) hypertension
[2023-09-16 23:14] LABS: Appearance Urine Clear (Clear); Bacteria Urine Automated None Seen (None Seen); Bilirubin Urine Negative (Negative); Blood Urine Negative (Negative); Cast Urine Automated 0-2 /lpf (0-2); Color Urine Yellow; Glucose Urine UA Negative (Negative); Ketones Urine Trace (Negative); Leukocyte Esterase Urine Negative (Negative); Nitrite Urine Negative (Negative); Protein Urine 2+ (Negative); RBC Urine Automated 0-2 /hpf (0-2); Specific Gravity Urine 1.022 (1.000-1.030); Urobilinogen Urine Negative (Negative); WBC Urine Automated 0-5 /hpf (0-5); pH Urine 6.5 (4.5-7.5)
[2023-09-17 06:31] LABS: Creatinine Clr Calc Pharmacy 74.5 ml/min; Est GFR (African American) 102.2 ml/min; Est GFR (Non-African American) 88.2 ml/min; Potassium 2.9 mmol/L (3.5-5.1)
[2023-09-17 06:32] LABS: Basophils # (auto) 0.03 K/uL (0.00-0.20); Basophils % (auto) 0.5 %; Hematocrit (blood only) 31.8 % (37.0-47.0); Hemoglobin 10.5 g/dl (12.0-16.0); Immature Granulocytes # (auto) 0.13 K/uL (0.01-0.20); Immature Granulocytes % (auto) 2.2 %; Lymphocytes # (auto) 0.64 K/uL (1.20-3.40); Lymphocytes % (auto) 10.7 %; Mean Corpuscular Hemoglobin 30.9 pg (25.0-34.0); Mean Corpuscular Volume 93.5 fL (80.0-100.0); Mean Platelet Volume 10.7 fL (9.4-12.4); Monocytes % (auto) 6.7 %; Neutrophils # (auto) 4.79 K/uL (1.40-6.50); Neutrophils % (auto) 79.9 %; Nucleated RBC # (auto) 0.02 K/uL (0.00-0.12); Nucleated RBC % (auto) 0.3 %; Platelet Count 180 K/uL (130-400); RDW Coefficient of Variation 17.8 % (11.5-14.5); RDW Standard Deviation 58.3 fL (36.4-46.3); White Blood Count 5.99 K/ul (4.8-10.8)
[2023-09-17 08:18] LABS: Magnesium 1.3 mg/dl (1.7-2.4)
[2023-09-17] MEDS: FLUCONAZOLE 100 MG TAB PO SCH (08:52)
[2023-09-17] MEDS: POTASSIUM CHLORIDE CRTAB 20 MEQ TABCR PO SCH (08:53)
[2023-09-17] MEDS: PANTOprazole 40 MG TAB PO SCH (08:53)
[2023-09-17] MEDS ORDERED: POTASSIUM CHLORIDE 20 MEQ/15 ML UDC PO SCH (09:00)
[2023-09-17] MEDS: dilTIAZem HCL 30 MG TAB PO SCH (14:03)
--- NOTE | 2023-09-17 16:10 | Hospitalist Progress Note ---
Date of Service September 17, 2023 Assessment & Plan (1) Multifocal pneumonia: Plan: 73 y/o with CRISTIN lung cancer just completed chemotherapy and XRT. Future immunotherapy planned. Admitted with multifocal aspiration pneumonia or aspiration pneumonitis. -resp biofire and nasal MRSA negative -checked procal which is not elevated -treated with pip-tazo and will change to augmentin for 7d course. Not clear that this is infectious process but immunocompromised with recent chemo and cancer so will treat with course of antibiotics. Dysphagia and aspiration -ST consulted - VFSS done today, aspirated on thick and thin liquids. Discussed with ST - better to allow thin liquids (no straws) than to aspirate thickener. -dysphagia likely related to neurological dysfunction from her probable brain mets and also has a few subacute lacunes on recent MRI (2) Atrial fibrillation with rapid ventricular response: Plan: Ordered oral metoprolol and rates improved throughout today though still intermittently elevated -cont po metoprolol -added dilt 30 mg po q8h with improvement in rate later in day. digoxin not a good option with recurrent hypokalemia -cont PRN IV metoprolol sustained rates >120 -TTE 09/14 reviewed - normal EF, normal volume status. RVSP elevated at 30-40. mod conc LVH. (3) Hypotension: Plan: In ED, rate or volume related and resolved (4) Acute respiratory failure with hypoxia: Plan: resolved, see above (5) Hypokalemia: Plan: 2.9 on admission, replaced and resolved 2.9 again today despite serial replacements 40 po tid today -AM BMP (6) Primary cancer of left upper lobe of lung: Plan: Stage 4 lung cancer Appreciate heme/onc consult -left lobe hepatic metastasis, adrenal metastases, and metastatic bony disease involving the lumbosacral spine are new findings as compared to 06/11/2023 -follow up as outpatient with Dr. Knowles to plan future immunotherapy (7) Diabetes: (8) Paroxysmal atrial fibrillation: Plan: History of -resume apixaban, resumed metoprolol, added dilt -on xarelto (9) Hypertension: Plan: HCTZ, losartan held, metoprolol resumed, dilt added -stop HCTZ on discharge since volume depleted, poor po, hypokalemic on admission. If diuretic necessary spironolactone would be better (10) COPD (chronic obstructive pulmonary disease) with emphysema: Plan: Not in exacerbation Plan Acute kidney injury Creatinine 1.77, with base 0.87 on 09/06 -prerenal, resolved after IVF. Thrush/likely Gertrude esophagitis/radiation esophagitis- Likely contributing significantly to decreased oral intake Had been on nystatin Fluconazole 200 mg x 14d - changed to po Pantoprazole 40 mg daily - changed to po Diabetes mellitus- Hold metformin Placed on Accu-Cheks with NovoLog SSI -BG at goal DVT ppx- on DOAC Admission and Anticipated Discharge Date Admission Date: September 14, 2023 Subjective remains weak with poor appetite and some pain with swallowing cough/dyspnea improved, now on room air she reported hematochezia this AM "a lot" bright red, but discussed with RN who witnessed BM and I checked the BM in the hat and her diaper and it is completely brown. RN says she just had a streak of red blood on TP with BM yesterday. Physical Exam 2 Physical Exam: VS past 24h reviewed remarkable for tachycardia exam unchanged 09/16 afib on tele Calm, alert, no distress AO x 4 face symmetric maew Heart irreg irreg tachy no mrg no JVD Lungs - comfortable resp effort, coarse crackles both bases no wheezing ABd s/nd +BT LE wwp no edema. Skin w/d no rash BROWN stool in diaper/hat. no blood Results & Data Results & Data Vital Signs (Past 12 Hours) Vital Signs Temp Pulse Pulse Pulse Resp BP Pulse Ox 09/17/23 15:47 36.8 C 89 18 146/80 H 98 09/17/23 15:05 113 H 20 91 09/17/23 11:30 36.7 C 103 H 18 130/69 97 09/17/23 11:25 111 H 20 09/17/23 07:58 36.8 C 118 H 20 129/71 94 09/17/23 07:46 96 H 09/17/23 07:46 09/17/23 07:30 111 H 20 93 O2 Del Method O2 Flow Rate 09/17/23 15:47 Room Air 09/17/23 15:05 Room Air 09/17/23 11:30 Nasal Cannula 09/17/23 11:25 Room Air 92 09/17/23 07:58 Nasal Cannula 09/17/23 07:46 09/17/23 07:46 Room Air 09/17/23 07:30 Room Air Laboratory Results 09/17/23 05:22 09/17/23 05:22 PG Care Time/CCT Total # of Minutes Spent Total Time Spent with Patient: I personally spent: 50 minutes today on clinical care activities including: reviewing chart notes and vital signs reviewing labs discussion with bedside RN discussion with healthcare account manager examining and counseling the patient counseling the patient's family writing orders documentation Coding Level of Care Code 07435 SUB INP/OBS CARE 3/50MIN Diagnoses Multifocal pneumonia J18.9 Atrial fibrillation with rapid ventricular response I48.91 Hypotension I95.9 Hypotension type: unspecified hypotension type Acute respiratory failure with hypoxia J96.01 Hypokalemia E87.6 Primary cancer of left upper lobe of lung C34.12 Type 2 diabetes mellitus without complication, without long-term current use of insulin E11.9 Diabetes mellitus type: type 2 Diabetes mellitus halfway insulin use: without terminal operations manager use Diabetes mellitus complication status: without complication Paroxysmal atrial fibrillation I48.0 Primary hypertension I10 Hypertension type: primary hypertension 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 (3) Hypotension Hypotension type: unspecified hypotension type Qualified Code(s): I95.9 - Hypotension, unspecified (7) Diabetes Diabetes mellitus type: type 2 Diabetes mellitus halfway insulin use: w ithout terminal operations manager use Diabetes mellitus complication status: without complication Qualified Code(s): E11.9 - Type 2 diabetes mellitus without complications (9) Hypertension Hypertension type: primary hypertension Qualified Code(s): I10 - Essential (primary) hypertension
[2023-09-18 06:46] LABS: BUN Creatinine Ratio 14.9 (10-20); Calcium 7.9 mg/dl (8.6-10.3); Creatinine Clr Calc Pharmacy 69.2 ml/min; Est GFR (African American) 99.7 ml/min; Potassium 3.9 mmol/L (3.5-5.1)
[2023-09-18] MEDS: MAGNESIUM SULFATE / D5W 1 GM/100 ML BAG IV SCH (07:58)
[2023-09-18] MEDS: dilTIAZem HCl 60 MG TAB PO SCH (09:40)
[2023-09-18] MEDS: POTASSIUM CHLORIDE CRTAB 20 MEQ TABCR PO SCH (09:42)
[2023-09-18] MEDS: AMOXICILLIN/CLAVULANATE 875 MG TAB PO SCH (12:57)
--- NOTE | 2023-09-18 15:31 | Hospitalist Progress Note ---
Date of Service September 18, 2023 Assessment & Plan (1) Multifocal pneumonia: Plan: 73 y/o with CRISTIN lung cancer just completed chemotherapy and XRT. Future immunotherapy planned. Admitted with multifocal aspiration pneumonia or aspiration pneumonitis. -resp biofire and nasal MRSA negative -checked procal which is not elevated -treated with pip-tazo and changed to augmentin to complete 7d course. Not clear that this is infectious process but immunocompromised with recent chemo and cancer so will treat with course of antibiotics. Dysphagia and aspiration -ST consulted - VFSS - aspirated on thick and thin liquids. Discussed with ST - better to allow thin liquids (no straws) than to aspirate thickener. -dysphagia likely related to neurological dysfunction from her probable brain mets and also has a few subacute lacunes on recent MRI (2) Atrial fibrillation with rapid ventricular response: Plan: Rate still elevated >100 -cont po metoprolol -added dilt increase to 80 mg q8h. digoxin not a good option with recurrent hypokalemia -cont PRN IV metoprolol sustained rates >120 -TTE 09/14 reviewed - normal EF, normal volume status. RVSP elevated at 30-40. mod conc LVH. (3) Hypotension: Plan: In ED, rate or volume related and resolved (4) Acute respiratory failure with hypoxia: Plan: resolved, see above (5) Hypokalemia: Plan: Has required aggressive serial replacements. Normal today Mag low at 1.3 - replace with 3g IV -daily potassium supp -AM BMP, mag (6) Primary cancer of left upper lobe of lung: Plan: Stage 4 lung cancer Appreciate heme/onc consult -left lobe hepatic metastasis, adrenal metastases, and metastatic bony disease involving the lumbosacral spine are new findings as compared to 06/11/2023 -follow up as outpatient with Dr. Knowles to plan future immunotherapy (7) Diabetes: (8) Paroxysmal atrial fibrillation: Plan: History of -apixaban, metoprolol, added dilt (9) Hypertension: Plan: HCTZ, losartan held, metoprolol resumed, dilt added -stop HCTZ on discharge since volume depleted, poor po, hypokalemic on admission. If diuretic necessary spironolactone would be better (10) COPD (chronic obstructive pulmonary disease) with emphysema: Plan: Not in exacerbation Plan Acute kidney injury Creatinine 1.77, with base 0.87 on 09/06 -prerenal, resolved after IVF. Thrush/likely Gertrude esophagitis/radiation esophagitis- Likely contributing significantly to decreased oral intake Had been on nystatin Fluconazole 200 mg x 14d - changed to po Pantoprazole 40 mg daily - changed to po Diabetes mellitus- Hold metformin Placed on Accu-Cheks with NovoLog SSI -BG at goal DVT ppx- on DOAC PT/OT ordered. She lives with Kristin's mother who is in wheelchair, who is now in hospital, and unable to assist her with ambulation or ADLs. Updated her daughter at bedside 09/16, Kristin her niece who is DPOA on 09/17 - she has good questions about what the prognosis is with immunotherapy or other treatment, whether Leila would even be strong enough to tolerate it (especially given her weakness, very poor oral intake, chronic aspiration), and whether she would want it - when Leila learned of the brain metastases she said "I'm done" and didn't want to do further treatment, wanted to be home. Will d/w Dr. Knowles and continue this discussion. Admission and Anticipated Discharge Date Admission Date: September 14, 2023 Subjective Breathing and cough improved, weak when I saw her going to bathroom with RN Poor appetite, doesn't like the food Says her sister is in the hospital today (true) Physical Exam 2 Physical Exam: VS and tele past 24h reviewed remarkable for afib with tachycardia, rates low 100s Calm, alert, no distress AO x 4 face symmetric maew Heart irreg irreg tachy no mrg no JVD Lungs - comfortable resp effort, coarse crackles both bases and mid [place], air movement improved, no wheezing ABd s/nd +BT LE wwp no edema. Skin w/d no rash Results & Data Results & Data Vital Signs (Past 12 Hours) Vital Signs Temp Pulse Pulse Resp BP Pulse Ox O2 Del Method 09/18/23 14:58 100 H 18 Room Air 09/18/23 11:35 102 H 20 94 Room Air 09/18/23 11:15 36.8 C 104 H 19 121/80 91 Room Air 09/18/23 10:31 Room Air 09/18/23 07:31 128 H 09/18/23 07:29 36.8 C 117 H 20 149/88 H 94 Room Air 09/18/23 07:09 111 H 20 92 Room Air FiO2 09/18/23 14:58 93 09/18/23 11:35 09/18/23 11:15 09/18/23 10:31 09/18/23 07:31 09/18/23 07:29 09/18/23 07:09 Laboratory Results 09/17/23 05:22 09/18/23 05:26 PG Care Time/CCT Total # of Minutes Spent Total Time Spent with Patient: I personally spent: 50 minutes today on clinical care activities including: reviewing chart notes and vital signs reviewing labs discussion with reproductive healthcare assistant examining and counseling the patient counseling the patient's family writing orders documentation Coding Level of Care Code 68095 SUB INP/OBS CARE 3/50MIN Diagnoses Multifocal pneumonia J18.9 Atrial fibrillation with rapid ventricular response I48.91 Hypotension I95.9 Hypotension type: unspecified hypotension type Acute respiratory failure with hypoxia J96.01 Hypokalemia E87.6 Primary cancer of left upper lobe of lung C34.12 Type 2 diabetes mellitus without complication, without long-term current use of insulin E11.9 Diabetes mellitus complication status: without complication Diabetes mellitus care home insulin use: without care home use Diabetes mellitus type: type 2 Paroxysmal atrial fibrillation I48.0 Primary hypertension I10 Hypertension type: primary hypertension 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 (3) Hypotension Hypotension type: unspecified hypotension type Qualified Code(s): I95.9 - Hypotension, unspecified (7) Diabetes Diabetes mellitus complication status: without complication Diabetes mellitus care home insulin use: without care home use Diabetes mellitus type: type 2 Qualified Code(s): E11.9 - Type 2 diabetes mellitus without complications (9) Hypertension Hypertension type: primary hypertension Qualified Code(s): I10 - Essential (primary) hypertension
[2023-09-18] MEDS ORDERED: dilTIAZem HCl 60 MG TAB PO SCH (21:00)
[2023-09-18] MEDS: dilTIAZem HCL 30 MG TAB PO SCH (21:06)
[2023-09-19 06:12] LABS: BUN Creatinine Ratio 14.3 (10-20); Creatinine Clr Calc Pharmacy 82.7 ml/min; Est GFR (African American) 105.7 ml/min; Est GFR (Non-African American) 91.2 ml/min; Magnesium 1.7 mg/dl (1.7-2.4); Potassium 3.8 mmol/L (3.5-5.1)
--- NOTE | 2023-09-19 18:23 | Hospitalist Progress Note ---
Date of Service September 19, 2023 Assessment & Plan (1) Multifocal pneumonia: Plan: 73 y/o with CRISTIN lung cancer just completed chemotherapy and XRT. Future immunotherapy planned. Admitted with multifocal aspiration pneumonia or aspiration pneumonitis. -resp biofire and nasal MRSA negative -checked procal which is not elevated -treated with pip-tazo and changed to augmentin to complete 7d course. Not clear that this is infectious process but immunocompromised with recent chemo and cancer so will treat with course of antibiotics. Dysphagia and aspiration -ST consulted - VFSS - aspirated on thick and thin liquids. Discussed with ST - better to allow thin liquids (no straws) than to aspirate thickener. -dysphagia likely related to neurological dysfunction from her probable brain mets and also has a few subacute lacunes on recent MRI was on room air last 2 previous days but back on 3 L of oxygen 09/18 likely from ongoing aspiration, does not appear to be volume overloaded and not wheezing no evidence of COPD exacerbation (2) Atrial fibrillation with rapid ventricular response: Plan: Rate still elevated though improved -cont po metoprolol - changed to tartrate so that it can crush - diltiazem 90 mg every 8 hours -cont PRN IV metoprolol sustained rates >120 -TTE 09/14 reviewed - normal EF, normal volume status. RVSP elevated at 30-40. mod conc LVH. (3) Hypotension: Plan: In ED, rate or volume related and resolved (4) Acute respiratory failure with hypoxia: Plan: had resolved but back on 3 L nasal cannula as of 09/18 (5) Hypokalemia: Plan: Has required aggressive serial replacements. Normal today Mag replaced, 1.7 today -daily potassium supp, 3.8 today -AM BMP, mag (6) Primary cancer of left upper lobe of lung: Plan: Stage 4 lung cancer Appreciate heme/onc consult -left lobe hepatic metastasis, adrenal metastases, and metastatic bony disease involving the lumbosacral spine are new findings as compared to 06/11/2023 - per Dr. Knowles next step in treatment would be immunotherapy (7) Diabetes: (8) Paroxysmal atrial fibrillation: Plan: History of -apixaban, metoprolol, added dilt (9) Hypertension: Plan: HCTZ, losartan held, metoprolol resumed, dilt added -stop HCTZ on discharge since volume depleted, poor po, hypokalemic on admission. If diuretic necessary spironolactone would be better (10) COPD (chronic obstructive pulmonary disease) with emphysema: Plan: Not in exacerbation 3 times daily nebulizers and as needed which is her home regimen Plan Acute kidney injury Creatinine 1.77, with base 0.87 on 09/06 -prerenal, resolved after IV - stop IV fluid Thrush/likely Gertrude esophagitis/radiation esophagitis- Likely contributing significantly to decreased oral intake Had been on nystatin Fluconazole 200 mg x 14d - changed to po Pantoprazole 40 mg daily - changed to po Diabetes mellitus- Hold metformin Placed on Accu-Cheks with NovoLog SSI -BG at goal very poor oral intake persists due to low appetite and radiation esophagitis, only eating few bites with each meal DVT ppx- on DOAC PT/OT ordered. pending Updated her daughter at bedside 09/16, Kristin her niece who is DPOA on 09/17 - she has good questions about what the prognosis is with immunotherapy or other treatment, whether Leila would even be strong enough to tolerate it (especially given her weakness, very poor oral intake, chronic aspiration), and whether she would want it - when Leila learned of the brain metastases she said "I'm done" and didn't want to do further treatment, wanted to be home. Will d/w Dr. Knowles and continue this discussion. 09/18 I met with Leila and and and Kristin in the evening, Leila wishes to stop treatmentshe has been consistent about this since finishing her last round of chemo and radiation, and wishes to go home. Kristin is supportive of having her home with home hospice. Discussed CODE STATUS and changed to DNR/DNI Admission and Anticipated Discharge Date Admission Date: September 14, 2023 Subjective gets dyspnea walking to bathroom, takes few minutes to recover throat still sore with eating PT/OT didnt see yet Physical Exam 2 Physical Exam: PHYSICAL EXAMINATION Last 24h vital signs reviewed, see documentation in flowsheet General: comfortable appearing, no distress HEENT: Normocephalic, atraumatic, pupils round and equal, sclerae anicteric, no conjunctival injection, moist mucus membranes Lungs: Normal respiratory effort. bilateral coarse crackles assisted up, diminished in bases, no wheezing Heart: tachycardic and irregular, no murmurs. No JVD Abdomen: Soft, nontender, nondistended. Bowel sounds present. Extremities: Warm, dry, well-perfused. No extremity edema. Neuro: Alert and oriented x 4, face symmetric, moves 4 extremities well Psych: Normal affect and behavior Results & Data Results & Data Vital Signs (Past 12 Hours) Vital Signs Temp Pulse Pulse Resp BP Pulse Ox O2 Del Method 09/19/23 16:21 36.4 C L 88 20 130/77 95 Nasal Cannula 09/19/23 16:04 78 09/19/23 14:11 93 H 18 93 Nasal Cannula 09/19/23 12:04 36.7 C 82 19 129/75 93 Nasal Cannula 09/19/23 10:17 85 18 90 Nasal Cannula 09/19/23 08:32 87 L Room Air, Nasal Cannula 09/19/23 08:32 95 H 09/19/23 08:32 Nasal Cannula 09/19/23 08:02 36.6 C 118 H 19 135/80 88 L Room Air 09/19/23 06:49 99 H 18 95 Room Air O2 Flow Rate 09/19/23 16:21 3.0 09/19/23 16:04 09/19/23 14:11 2 09/19/23 12:04 3.0 09/19/23 10:17 2 09/19/23 08:32 09/19/23 08:32 09/19/23 08:32 3 09/19/23 08:02 09/19/23 06:49 Laboratory Results 09/17/23 05:22 09/19/23 05:10 PG Care Time/CCT Total # of Minutes Spent Total Time Spent with Patient: Total time spent is greater than 50% in coordination of care (as documented) at patient's floor/unit and/or counseling patient: Coding Level of Care Code 50238 SUB INP/OBS CARE 3/50MIN Diagnoses Multifocal pneumonia J18.9 Atrial fibrillation with rapid ventricular response I48.91 Hypotension I95.9 Hypotension type: unspecified hypotension type Acute respiratory failure with hypoxia J96.01 Hypokalemia E87.6 Primary cancer of left upper lobe of lung C34.12 Type 2 diabetes mellitus without complication, without long-term current use of insulin E11.9 Diabetes mellitus type: type 2 Diabetes mellitus intermediate insulin use: without bed bug exterminator use Diabetes mellitus complication status: without complication Paroxysmal atrial fibrillation I48.0 Primary hypertension I10 Hypertension type: primary hypertension 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 (3) Hypotension Hypotension type: unspecified hypotension type Qualified Code(s): I95.9 - Hypotension, unspecified (7) Diabetes Diabetes mellitus type: type 2 Diabetes mellitus intermediate insulin use: w ithout bed bug exterminator use Diabetes mellitus complication status: without complication Qualified Code(s): E11.9 - Type 2 diabetes mellitus without complications (9) Hypertension Hypertension type: primary hypertension Qualified Code(s): I10 - Essential (primary) hypertension
[2023-09-19] MEDS: ALBUT/IPRATROP 3MG/0.5MG NEB 3 ML VIAL NEB SCH (19:41)
[2023-09-19] MEDS: LANSOPRAZOLE 30 MG SOLTAB PO SCH (20:53)
[2023-09-20] MEDS: POTASSIUM CHLORIDE PWD 20 MEQ PACK PO SCH (09:12)
[2023-09-20] MEDS: METOPROLOL TARTRATE 100 MG TAB PO SCH (09:12)
--- NOTE | 2023-09-20 16:18 | Hospitalist Progress Note ---
Date of Service September 20, 2023 Assessment & Plan (1) Multifocal pneumonia: Plan: 73 y/o with CRISTIN lung cancer just completed chemotherapy and XRT. Future immunotherapy planned. Admitted with multifocal aspiration pneumonia or aspiration pneumonitis. -resp biofire and nasal MRSA negative -checked procal which is not elevated -treated with pip-tazo and changed to augmentin to complete 7d course. Not clear that this is infectious process but immunocompromised with recent chemo and cancer so will treat with course of antibiotics. Dysphagia and aspiration -ST consulted - VFSS - aspirated on thick and thin liquids. Discussed with ST - better to allow thin liquids (no straws) than to aspirate thickener. -dysphagia likely related to neurological dysfunction from her probable brain mets and also has a few subacute lacunes on recent MRI has been variable on/off O2 2-3L this admission likely from ongoing aspiration and atelectasis, does not appear to be volume overloaded and not wheezing no evidence of COPD exacerbation (2) Atrial fibrillation with rapid ventricular response: Plan: Rate now improved -cont po metoprolol - changed to tartrate so that it can crush - diltiazem 90 mg every 8 hours -cont PRN IV metoprolol sustained rates >120 -TTE 09/14 reviewed - normal EF, normal volume status. RVSP elevated at 30-40. mod conc LVH. (3) Hypotension: Plan: In ED, rate or volume related and resolved (4) Acute respiratory failure with hypoxia: Plan: on/off of O2 2-3L (5) Hypokalemia: Plan: Has required aggressive serial replacements. Normal today Mag replaced 09/18 -daily potassium supp, 3.8 09/18 -AM BMP, mag (6) Primary cancer of left upper lobe of lung: Plan: Stage 4 lung cancer Appreciate heme/onc consult -left lobe hepatic metastasis, adrenal metastases, and metastatic bony disease involving the lumbosacral spine are new findings as compared to 06/11/2023 - per Dr. Knowles next step in treatment would be immunotherapy I discussed with him 09/19 - she could have good response but her other medical conditions are primary problem currently - respiratory failure, COPD, aspiration etc and affect her prognosis more than the cancer at this point (7) Diabetes: (8) Paroxysmal atrial fibrillation: Plan: History of -apixaban, metoprolol, added dilt (9) Hypertension: Plan: HCTZ, losartan held, metoprolol resumed, dilt added -stop HCTZ on discharge since volume depleted, poor po, hypokalemic on admission. If diuretic necessary spironolactone would be better (10) COPD (chronic obstructive pulmonary disease) with emphysema: Plan: Not in exacerbation 3 times daily nebulizers and as needed which is her home regimen Plan Acute kidney injury Creatinine 1.77, with base 0.87 on 09/06 -prerenal, resolved after IV - stop IV fluid Thrush/likely Gertrude esophagitis/radiation esophagitis- Likely contributing significantly to decreased oral intake Had been on nystatin Fluconazole 200 mg x 14d - changed to po Pantoprazole 40 mg daily - changed to po Diabetes mellitus- Hold metformin Placed on Accu-Cheks with NovoLog SSI -BG at goal -eating very little very poor oral intake persists due to low appetite and radiation esophagitis, only eating few bites with each meal DVT ppx- on DOAC PT/OT ordered. pending Updated her daughter at bedside 09/16, Kristin her niece who is DPOA on 09/17 - she has good questions about what the prognosis is with immunotherapy or other treatment, whether Leila would even be strong enough to tolerate it (especially given her weakness, very poor oral intake, chronic aspiration), and whether she would want it - when Leila learned of the brain metastases she said "I'm done" and didn't want to do further treatment, wanted to be home. Will d/w Dr. Knowles and continue this discussion. 09/18 I met with Leila and and and Kristin in the evening, Leila wishes to stop treatmentshe has been consistent about this since finishing her last round of chemo and radiation, and wishes to go home. Kristin is supportive of having her home with home hospice. Discussed CODE STATUS and changed to DNR/DNI Admission and Anticipated Discharge Date Admission Date: September 14, 2023 Subjective feels ok today, breathing pretty good, no CP, no abd pain Physical Exam 2 Physical Exam: PHYSICAL EXAMINATION Last 24h vital signs reviewed, see documentation in flowsheet General: comfortable appearing, no distress HEENT: Normocephalic, atraumatic, pupils round and equal, sclerae anicteric, no conjunctival injection, moist mucus membranes Lungs: Normal respiratory effort. bilateral coarse crackles in bases improved, no wheezing Heart: irregular, no murmurs. No JVD Abdomen: Soft, nontender, nondistended. Bowel sounds present. Extremities: Warm, dry, well-perfused. No extremity edema. Neuro: Alert and oriented x 4, face symmetric, moves 4 extremities well Psych: Normal affect and behavior Results & Data Results & Data Vital Signs (Past 12 Hours) Vital Signs Temp Pulse Pulse Resp BP Pulse Ox O2 Del Method 09/20/23 15:52 36.3 C L 72 20 110/70 98 Nasal Cannula 09/20/23 15:00 69 09/20/23 14:40 87 09/20/23 14:30 92 09/20/23 11:58 36.3 C L 103 H 20 144/83 H 94 Room Air 09/20/23 07:56 36.3 C L 82 19 153/84 H 97 Nasal Cannula 09/20/23 07:30 Nasal Cannula O2 Flow Rate 09/20/23 15:52 2.0 09/20/23 15:00 09/20/23 14:40 09/20/23 14:30 09/20/23 11:58 09/20/23 07:56 2.0 09/20/23 07:30 2 Laboratory Results 09/17/23 05:22 09/19/23 05:10 PG Care Time/CCT Total # of Minutes Spent Total Time Spent with Patient: Total time spent is greater than 50% in coordination of care (as documented) at patient's floor/unit and/or counseling patient: Coding Level of Care Code 66034 SUB INP/OBS CARE 2/35MIN Diagnoses Multifocal pneumonia J18.9 Atrial fibrillation with rapid ventricular response I48.91 Hypotension I95.9 Hypotension type: unspecified hypotension type Acute respiratory failure with hypoxia J96.01 Hypokalemia E87.6 Primary cancer of left upper lobe of lung C34.12 Type 2 diabetes mellitus without complication, without long-term current use of insulin E11.9 Diabetes mellitus type: type 2 Diabetes mellitus halfway insulin use: without halfway use Diabetes mellitus complication status: without complication Paroxysmal atrial fibrillation I48.0 Primary hypertension I10 Hypertension type: primary hypertension 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 (3) Hypotension Hypotension type: unspecified hypotension type Qualified Code(s): I95.9 - Hypotension, unspecified (7) Diabetes Diabetes mellitus type: type 2 Diabetes mellitus halfway insulin use: w ithout continuous churn buttermaker use Diabetes mellitus complication status: without complication Qualified Code(s): E11.9 - Type 2 diabetes mellitus without complications (9) Hypertension Hypertension type: primary hypertension Qualified Code(s): I10 - Essential (primary) hypertension
[2023-09-21 08:17] LABS: BUN Creatinine Ratio 19.6 (10-20); Calcium 8.5 mg/dl (8.6-10.3); Creatinine Clr Calc Pharmacy 100.2 ml/min; Est GFR (African American) 112.8 ml/min; Est GFR (Non-African American) 97.3 ml/min; Magnesium 1.6 mg/dl (1.7-2.4); Potassium 3.6 mmol/L (3.5-5.1)
[2023-09-21] MEDS: MAGNESIUM SULFATE / D5W 1 GM/100 ML BAG IV SCH (09:29)
[2023-09-21] MEDS: MAGNESIUM OXIDE 400 MG TAB PO SCH (09:29)
--- NOTE | 2023-09-21 17:40 | Hospitalist Progress Note ---
Date of Service September 21, 2023 Assessment & Plan (1) Multifocal pneumonia: Plan: 73 y/o with CRISTIN lung cancer just completed chemotherapy and XRT. Future immunotherapy was planned. Admitted with multifocal aspiration pneumonia or aspiration pneumonitis. -resp biofire and nasal MRSA negative -checked procal which is not elevated -treated with pip-tazo and changed to augmentin to complete 7d course. Not clear that this is infectious process but immunocompromised with recent chemo and cancer so will treat with course of antibiotics. Dysphagia and aspiration -ST consulted - VFSS - aspirated on thick and thin liquids. Discussed with ST - better to allow thin liquids (no straws) than to aspirate thickener. -dysphagia likely related to neurological dysfunction from her probable brain mets and also has a few subacute lacunes on recent MRI has been variable on/off O2 2-3L this admission likely from ongoing aspiration and atelectasis, does not appear to be volume overloaded and not wheezing no evidence of COPD exacerbation (2) Atrial fibrillation with rapid ventricular response: Plan: Rate now improved -cont po metoprolol - changed to tartrate so that it can crush -required addition of po diltiazem (90 q8) for rapid rates but today had bradycardia so held -cont PRN IV metoprolol sustained rates >120 -TTE 09/14 reviewed - normal EF, normal volume status. RVSP elevated at 30-40. mod conc LVH. (3) Hypotension: Plan: In ED, rate or volume related and resolved (4) Acute respiratory failure with hypoxia: Plan: on/off of O2 2-3L (5) Hypokalemia: Plan: Has required aggressive serial replacements. 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 Knowles next step in treatment would be immunotherapy I discussed with him 09/19 - she could have good response but her other medical conditions are primary problem currently - respiratory failure, COPD, aspiration etc and affect her prognosis more than the cancer at this point (7) Diabetes: Plan: BG rmains at goal (8) Paroxysmal atrial fibrillation: Plan: History of -apixaban, metoprolol, added dilt (9) Hypertension: Plan: HCTZ, losartan held, metoprolol resumed, dilt added -stop HCTZ on discharge since volume depleted, poor po, hypokalemic on admission. Oral intake has been poor so diuretic no longer appropriate (10) COPD (chronic obstructive pulmonary disease) with emphysema: Plan: Not in exacerbation 3 times daily nebulizers and as needed which is her home regimen Plan Acute kidney injury Creatinine 1.77, with base 0.87 on 09/06 -prerenal, resolved after IV Thrush/likely Gertrude esophagitis/radiation esophagitis- Likely contributing significantly to decreased oral intake Had been on nystatin Fluconazole 200 mg x 14d - changed to po Pantoprazole 40 mg daily - changed to po -some improvement in throat but still sore Diabetes mellitus- Hold metformin Placed on Accu-Cheks with NovoLog SSI -BG at goal -eating very little very poor oral intake persists due to low appetite and radiation esophagitis, only eating few bites with each meal DVT ppx- on DOAC PT/OT ordered. pending Updated her daughter at bedside 09/16, Kristin her niece who is DPOA on 09/17 - she has good questions about what the prognosis is with immunotherapy or other treatment, whether Leila would even be strong enough to tolerate it (especially given her weakness, very poor oral intake, chronic aspiration), and whether she would want it - when Leila learned of the brain metastases she said "I'm done" and didn't want to do further treatment, wanted to be home. Will d/w Dr. Knowles and continue this discussion. 09/18 I met with Leila and cinthia and Kristin in the evening, Leila wishes to stop treatmentshe has been consistent about this since finishing her last round of chemo and radiation, and wishes to go home. Kristin is supportive of having her home with home hospice. Discussed CODE STATUS and changed to DNR/DNI discussed with care coord 09/20 planned for home with hospice on Friday 09/22 Admission and Anticipated Discharge Date Admission Date: September 14, 2023 Subjective Feeling pretty good today, working with OT, not on oxygen right now Continues to eat/rink very little Physical Exam 2 Physical Exam: PHYSICAL EXAMINATION Last 24h vital signs reviewed, see documentation in flowsheet General: comfortable appearing, no distress HEENT: Normocephalic, atraumatic, pupils round and equal, sclerae anicteric, no conjunctival injection, moist mucus membranes Lungs: Normal respiratory effort. bilateral coarse crackles in bases and mid guard[place], no wheezing Heart: irregular, no murmurs. No JVD Abdomen: Soft, nontender, nondistended. Bowel sounds present. Extremities: Warm, dry, well-perfused. No extremity edema. Neuro: Alert and oriented x 4, face symmetric, moves 4 extremities well Psych: Normal affect and behavior Results & Data Results & Data Vital Signs (Past 12 Hours) Vital Signs Temp Pulse Pulse Resp BP BP Pulse Ox 09/21/23 15:52 36.9 C 83 20 130/68 98 09/21/23 14:53 78 09/21/23 13:06 77 17 93 09/21/23 11:59 09/21/23 11:30 36.3 C L 68 17 104/71 95 09/21/23 07:39 09/21/23 07:28 36.4 C L 91 H 17 149/75 H 93 09/21/23 07:03 74 16 91 09/21/23 07:00 79 Pulse Ox O2 Del Method O2 Flow Rate 09/21/23 15:52 Room Air 09/21/23 14:53 09/21/23 13:06 Room Air 09/21/23 11:59 95 0 09/21/23 11:30 Room Air 09/21/23 07:39 Room Air 09/21/23 07:28 Room Air 09/21/23 07:03 Room Air 09/21/23 07:00 Laboratory Results 09/17/23 05:22 09/21/23 07:22 PG Care Time/CCT Total # of Minutes Spent Total Time Spent with Patient: Total time spent is greater than 50% in coordination of care (as documented) at patient's floor/unit and/or counseling patient: Coding Level of Care Code 91806 SUB INP/OBS CARE 2/35MIN Diagnoses Multifocal pneumonia J18.9 Atrial fibrillation with rapid ventricular response I48.91 Hypotension I95.9 Hypotension type: unspecified hypotension type Acute respiratory failure with hypoxia J96.01 Hypokalemia E87.6 Primary cancer of left upper lobe of lung C34.12 Type 2 diabetes mellitus without complication, without long-term current use of insulin E11.9 Diabetes mellitus type: type 2 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: without correction use Diabetes mellitus complication status: without complication Paroxysmal atrial fibrillation I48.0 Primary hypertension I10 Hypertension type: primary hypertension 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 (3) Hypotension Hypotension type: unspecified hypotension type Qualified Code(s): I95.9 - Hypotension, unspecified (7) Diabetes Diabetes mellitus type: type 2 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
--- NOTE | 2023-09-22 19:41 | Hospitalist Progress Note ---
Date of Service September 22, 2023 Assessment & Plan (1) Multifocal pneumonia: Plan: b/l pneumonia on CT chest 09/13/24 gram negative vs typical/community-acquired vs aspiration - difficult to know the causative agent but [id number] she has improved nicely s/p full course of IV/PO abx - now complete resp biofire and nasal MRSA were negative due to ?aspiration and dysphagia seen by speech therapy; video swallow showed aspiration of thick & thin liquids speech advised thin liquids dysphagia likely related to neurological dysfunction from her probable brain mets and strokes (2) Atrial fibrillation with rapid ventricular response: Plan: rates still fast typically on meto succ 200mg daily is on meto tartrate to allow crushing of meds due to dysphagia increase meto tartrate from 100mg BID to 150mg BID echo this admission with preserved EF remains on Eliquis 5mg BID - going home with hospice - keep Eliquis on board? d/c ? (3) Hypotension: Plan: resolved (4) Acute respiratory failure with hypoxia: Plan: 2nd to #1 improved O2 prn (5) Hypokalemia: Plan: replaced and finally resolved likely 2nd to poor PO intake and prior thiazide diuretic usage (6) Primary cancer of left upper lobe of lung: Plan: Stage 4 lung cancer Mets to liver, adrenal glands, brain, bone (spine) mets are progressive heme/onc consult by Dr. Knowles early in the stay -- next step in treatment would have been immunotherapy patient has decided she does not wish to have any further Rx for her cancer wants to return home with [facility] to provide services home tomorrow w/ such?? (7) Diabetes: Plan: BSGs acceptable (8) Hypertension: Plan: HCTZ has been stopped Losartan on hold metoprolol continued - titrated today as aboce (9) COPD (chronic obstructive pulmonary disease) with emphysema: Plan: cont home nebs & inhalers no flare at this time (10) Acute kidney injury: Plan: peak Cr 1.77 now <0.5 resolved (11) Candidiasis of mouth and esophagus: Plan: improved cont fluconazole 10-14 days (had thrush, and there was suspicion for candidal esophagitis) (12) Encounter for hospice care discussion: Plan: I confirmed with pt today she still desires to return home with hospice social work is putting final touches on this I spoke with Kristin, her niece, who confirmed the plan is still home w/ hospice needs hospital bed, etc before returning home pt lives with her sister and a [id number] Plan updated pt's niece Kristin by phone this evening home tomorrow if all hospice arrangements, equipment/bed, etc are all in place?? Admission and Anticipated Discharge Date Admission Date: September 14, 2023 Subjective patient anxious to return home - she is hopeful for d/c home tomorrow a.fib on monitor resting in bed comfortably feels "much better" in comparison to admission denies dyspnea at rest denies pain in any location Review of Systems Review of Systems: cv - no chest pain pulm - no dyspnea at rest GI - no abd pain musculo - no back pain Physical Exam Physical Exam: gen - NAD, pleasant, resting comfortably neck - no JVD mouth - MMM heart - irregularly irregular, tachy, s1 s2, no murmur lungs - CTA b/l except hint of wheeze b/l abd - soft NT ND BS+ ext - no edema, pulses 2+ b/l psych - awake / alert / pleasant Results & Data Results & Data Vital Signs (Past 12 Hours) Vital Signs Temp Pulse Pulse Resp BP BP Pulse Ox 09/22/23 19:23 36.6 C 109 H 18 133/86 92 09/22/23 15:16 36.4 C L 74 18 140/82 96 09/22/23 11:40 36.2 C L 94 H 18 137/94 94 O2 Del Method 09/22/23 19:23 Room Air 09/22/23 15:16 Room Air 09/22/23 11:40 Room Air Laboratory Results Laboratory Results - last 24 hr 09/22/23 09/22/23 09/22/23 07:18 10:56 16:24 POC Glucose 111 H 126 H 117 H PG Care Time/CCT Total # of Minutes Spent Total Time Spent with Patient: Total time spent is greater than 50% in coordination of care (as documented) at patient's floor/unit and/or counseling patient: Coding Level of Care Code 77688 SUB INP/OBS CARE 2/35MIN Diagnoses Multifocal pneumonia J18.9 Atrial fibrillation with rapid ventricular response I48.91 Hypotension I95.9 Hypotension type: unspecified hypotension type Acute respiratory failure with hypoxia J96.01 Hypokalemia E87.6 Primary cancer of left upper lobe of lung C34.12 Type 2 diabetes mellitus without complication, without long-term current use of insulin E11.9 Diabetes mellitus complication status: without complication Diabetes mellitus assisted insulin use: without exterminator helper termite use Diabetes mellitus type: type 2 Primary hypertension I10 Hypertension type: primary hypertension 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 Acute kidney injury N17.9 Candidiasis of mouth and esophagus B37.81; B37.0 Encounter for hospice care discussion Z71.89 (3) Hypotension Hypotension type: unspecified hypotension type Qualified Code(s): I95.9 - Hypotension, unspecified (7) Diabetes Diabetes mellitus complication status: without complication Diabetes mellitus assisted insulin use: without exterminator helper termite use Diabetes mellitus type: type 2 Qualified Code(s): E11.9 - Type 2 diabetes mellitus without complications (8) Hypertension Hypertension type: primary hypertension Qualified Code(s): I10 - Essential (primary) hypertension
[2023-09-22] MEDS: METOPROLOL TARTRATE 50 MG TAB PO SCH (20:02)
--- NOTE | 2023-09-23 15:50 | Discharge Summary ---
Date of Service September 23, 2023 Admission HPI Per Admitting Provider The patient is a 73-year-old female with a past medical history including atrial fibrillation, primary cancer of left upper lobe of lung, metastatic cancer, posttraumatic subdural hematoma, traumatic subarachnoid hemorrhage, diabetes mellitus, tobacco use, hypertension, hyperlipidemia, generalized anxiety disorder, depression and COPD. Upon presentation to the emergency department, heart rate was atrial fibrillation in the 130s, and blood pressure was 70s/50s. This responded to Lopressor 5 mg IV and 1.5 L of normal saline to systolic blood pressure in the low 100s, and heart rate to the upper 90s. The patient was referred for evaluation for admission to the hospitalist service. Discharge Exam gen - NAD, pleasant, resting comfortably neck - no JVD mouth - MMM heart - irregularly irregular, tachy, s1 s2, no murmur lungs - CTA b/l except hint of wheeze b/l abd - soft NT ND BS+ ext - no edema, pulses 2+ b/l psych - awake / alert / pleasant Discharge Data Allergies Allergy/AdvReac Type Severity Reaction Status Date / Time atorvastatin [From Lipitor] AdvReac Intermediate Legs go to Verified 09/14/23 14:44 sleep Consultations 09/14/23 19:00 ED Decision to Admit Stat 09/14/23 20:29 Consult Hematology Routine Ordered Studies 09/14/23 17:17 CT abd pelvis IV con only Stat CT angio chest PE protocol Stat CT head/brain wo con Stat 09/16/23 10:30 Fluoro video [FL video swallow] Routine Hospital Course (1) Multifocal pneumonia: b/l pneumonia on CT chest 09/13/24 gram negative vs typical/community-acquired vs aspiration - difficult to know the causative agent but [id number] she has improved nicely s/p full course of IV/PO abx - now complete resp biofire and nasal MRSA were negative due to ?aspiration and dysphagia seen by speech therapy; video swallow showed aspiration of thick & thin liquids speech advised thin liquids dysphagia likely related to neurological dysfunction from her probable brain mets and strokes (2) Atrial fibrillation with rapid ventricular response: rates still fast typically on meto succ 200mg daily is on meto tartrate to allow crushing of meds due to dysphagia increase meto tartrate from 100mg BID to 150mg BID echo this admission with preserved EF remains on Eliquis 5mg BID - going home with hospice - keep Eliquis on board? d/c ? (3) Hypotension: resolved (4) Acute respiratory failure with hypoxia: 2nd to #1 improved O2 prn (5) Hypokalemia: replaced and finally resolved likely 2nd to poor PO intake and prior thiazide diuretic usage (6) Primary cancer of left upper lobe of lung: Stage 4 lung cancer Mets to liver, adrenal glands, brain, bone (spine) mets are progressive heme/onc consult by Dr. Knowles early in the stay -- next step in treatment would have been immunotherapy patient has decided she does not wish to have any further Rx for her cancer wants to return home with [facility] to provide services home tomorrow w/ such?? (7) Diabetes: BSGs acceptable (8) Hypertension: HCTZ has been stopped Losartan on hold metoprolol continued - titrated today as aboce (9) COPD (chronic obstructive pulmonary disease) with emphysema: cont home nebs & inhalers no flare at this time (10) Acute kidney injury: peak Cr 1.77 now <0.5 resolved (11) Candidiasis of mouth and esophagus: improved cont fluconazole 10-14 days (had thrush, and there was suspicion for candidal esophagitis) (12) Encounter for hospice care discussion: I confirmed with pt today she still desires to return home with hospice social work is putting final touches on this I spoke with Kristin, her niece, who confirmed the plan is still home w/ hospice needs hospital bed, etc before returning home pt lives with her sister and a [id number] Plan updated pt's niece Kristin by phone this evening home tomorrow if all hospice arrangements, equipment/bed, etc are all in place?? Home Health Attestation I certify that this patient is under my care and that I, or a physicians public health assistant working with me, had a face to-face encounter that meets the home health [id number]-vp-wrzy encounter requirements with this patient. The encounter with the patient was in whole, or in part, for the following medical condition, which is the primary reason for home health care (list medical condition): I certify that, based on my findings, the following services are medically necessary home health services: My clinical findings support the need for the above services because: Further, I certify that my clinical findings support that this patient is homebound (i.e. absences from home require considerable and taxing effort and are for medical reasons or shinto services or infrequently or of short duration when for other reasons) because: Certification for Home Health Services: Based on the above findings, I certify that this patient is confined to the home and needs intermittent nursing home care, physical therapy and/or speech therapy or continues to need occupational therapy. The patient is under my care, and I have initiated the establishment of the plan of care. This patient will be followed by a physician who will periodically review the plan of care. Discharge Plan Discharge Items Patient Disposition: Hospice - Home Reason For Visit: HYPOTENSION, PNEUMONIA, A. FIB Discharge Diagnosis: 1. pneumonia - resolved 2. rapid a.fib - improved 3. stage 4/metastatic lung cancer (metastatic disease to the liver, bones, adrenal glands, brain) 4. anorexia (poor appetite) - due to #1, #3 5. suspected thrush (yeast infection of mouth) 6. possible yeast infection of esophagus 7. COPD 8. transition to hospice at home Activity: As commented below Activity Comment: as tolerated/as desired Non-emergency contact: Primary Care Provider Call non-emergency contact if: you have any medication questions, your symptoms worsen, your pain is not controlled and your pain is worsening Follow-up/Referrals: [facility] [Outside] Karen Stringer DO [Primary Care Provider] - Diet: Carb Consistent or DM2 Addtl Attending Provider Instructions: Mrs Almonte, It was our pleasure to care for you while you were hospitalized! During your stay we treated you for pneumonia with antibiotics. You completed a full course of treatment while here. At this time you are transitioning to home with hospice services in place. Multiple discussions took place with your family, your cancer doctor, and the hospitalist team to determine the next steps for your care. After much consideration you voiced to us and your family that you were desiring to return home and forego any additional treatment for your cancer. Upon return home please call the hospice company first with any questions, concerns, problems, uncontrolled symptoms, etc. The hospice agency will be able to address the majority of your concerns either by phone or in person at your home. Again, please do not call your family doctor or the emergency room for any probl ems or concerns - call the hospice agency first. We have tried to discontinue any unnecessary medicines or drugs that won't provide comfort or benefit. Please note I have shifted your metoprolol succinate to BEDTIME rather than taking it in the morning. You can start this tonight at bedtime. Treating your symptoms will be very important upon return home. If you are short of breath there will be oxygen available for you. If you have trouble passing your urine hospice can place a rodriguez back. If you have pain you can use hydrocodone pain medicine every 4 hours as needed. If you have nausea or vomiting you can use ondansetron 4mg every 6 hours as needed. If you are anxious you can continue your clonazepam as previous. For acid reduction/reflux take lansoprazole 30mg twice daily every day. For any constipation troubles you can use a combination of [id number] miralax and/or senna. At this time you can discontinue checking your blood sugars. For possible yeast infection of the esophagus and yeast in the mouth continue fluconazole 200mg daily x 3 days, first dose tomorrow. On many days you may have little to no appetite, little energy, etc. These symptoms are due to the progressing cancer. It is ok to rest as much as you need to while at home. The hospitalist team wishes you the best as you return home with your family. Enjoy being at your house! -Dr Michael Pending Studies at Discharge: No Stand-Alone Forms: My [facility] Medications and DC Order Prescriptions: New fluconazole [Diflucan] 100 mg Tablet 200 mg PO QAM 3 Days Qty: 6 0RF lansoprazole [Prevacid SoluTab] 30 mg Tablet,Disintegrat, Delay Rel 30 mg PO BID Qty: 60 2RF hydrocodone-acetaminophen 5-325 mg tablet 1 tab PO Q4H PRN (Reason: pain) Qty: 30 0RF ondansetron 4 mg tablet,disintegrating 4 mg PO Q6H PRN (Reason: nausea and vomiting) Qty: 14 0RF Continued venlafaxine 150 mg capsule,extended release 24hr 150 mg PO DAILY Qty: 90 3RF venlafaxine 75 mg capsule,extended release 24hr 75 mg PO DAILY Qty: 90 3RF Rx Instructions: take once daily with the 150mg capsule (DME) nebulizers [facility] [place] See Rx Instructions .Route Qty: 1 0RF Rx Instructions: Nebulizer and supplies to use with nebulizer solution -LON99 albuterol sulfate [ProAir HFA] 90 mcg/actuation HFA aerosol inhaler 2 puff inhalation QID PRN (Reason: shortness of breath or wheezing) Qty: 18 0RF ipratropium-albuterol 0.5 mg-3 mg(2.5 mg base)/3 mL solution for nebulization 3 ml inhalation QID Qty: 180 0RF sucralfate [Carafate] 1 gram tablet 1 g PO ACHS Qty: 90 2RF Rx Instructions: Dissolved in 1 teaspoon of water. acetaminophen [Tylenol] 325 mg capsule 650 mg PO Q6H PRN (Reason: Pain) Trelegy Ellipta 200-62.5-25 mcg blister with device 1 inh inhalation DAILY Qty: 60 2RF Eliquis 5 mg tablet 5 mg PO BID clonazepam 1 mg tablet 1 mg PO BID PRN (Reason: anxiety) Qty: 30 0RF Magic Mouthwash 300 mL mouthwash 10 ml mucous membrane ACHS Qty: 300 5RF Rx Instructions: swish and spit Changed metoprolol succinate 200 mg tablet extended release 24 hr 200 mg PO HS Qty: 90 3RF Discontinued prochlorperazine maleate [Compazine] 10 mg tablet 10 mg PO Q6H PRN (Reason: n/v) losartan 100 mg tablet 100 mg PO DAILY Qty: 90 3RF rosuvastatin 20 mg tablet 20 mg PO DAILY Qty: 90 3RF metformin 500 mg tablet extended release 24hr 500 mg PO BID Qty: 180 3RF hydrochlorothiazide 12.5 mg tablet 12.5 mg PO DAILY Qty: 90 3RF varenicline [Chantix Continuing Month Box] 1 mg tablet 1 mg PO BID Qty: 60 2RF tramadol 50 mg tablet 50 mg PO Q8H PRN (Reason: pain) Qty: 60 1RF dexamethasone 4 mg tablet 20 mg PO DAILY Rx Instructions: as directed 12 and 6 hours prior to chemo Discharge Orders: Discharge Order (Routine); Ordered 09/23/23 Ordered By: Stephan Michael Admission Data Admit Date/Time: 09/14/23 20:29 Attending Provider: Stephan Michael Admit Provider: Az Hughes Primary Care Provider: Karen Stringer Other Providers: Yosvany Knowles; Az Hughes Other Interventions: Discharge Summary Assessment (RN) Last Done: 09/23/23 15:45 Coding Diagnoses Multifocal pneumonia J18.9 Atrial fibrillation with rapid ventricular response I48.91 Hypotension I95.9 Hypotension type: unspecified hypotension type Acute respiratory failure with hypoxia J96.01 Hypokalemia E87.6 Primary cancer of left upper lobe of lung C34.12 Type 2 diabetes mellitus without complication, without long-term current use of insulin E11.9 Diabetes mellitus type: type 2 Diabetes mellitus fdc insulin use: without fdc use Diabetes mellitus complication status: without complication Primary hypertension I10 Hypertension type: primary hypertension 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 Acute kidney injury N17.9 Candidiasis of mouth and esophagus B37.81; B37.0 Encounter for hospice care discussion Z71.89
== END 2023-09-23 17:19 | disposition hospice, home (50) | DRG 177 ==
LOC: ED 15:51 → SUATTDRO 20:29 → 2S 20:29